=== PATIENT | female | born 1985 | race Caucasian/White ===

== ENCOUNTER 2025-02-07 19:48 | Inpatient (IN) | payer OTHER ==
--- NOTE | 2025-02-07 20:37 | ED ---
Fever HPI - General Chief Complaint: Upper Respiratory Infection Stated Complaint: Neck Pain,Sob,Fever Time Seen by Provider: 02/07/25 20:29 Source: patient, RN notes reviewed, old records reviewed Mode of arrival: ambulatory Limitations: no limitations - History of Present Illness Initial Comments: This is a 39-year-old female presenting extremely anxious crying said thinks that she is going to , patient states she recently had her mom her grandma and she is very nervous. Patient was in the hospital recently as in the past couple days and was told everything was okay to be discharged home but was placed on antibiotics he stated that did not help she is now having left leg pain left ankle pain severe shortness of breath coughing till she pukes and feels feverish with a racing heart and short of breath patient does have history of DVT and not taking blood thinner secondary to insurance issues MD Complaint: fever, malaise, weakness, other (Shortness of breath and anxiety) -: days(s) Temperature Source: subjective Context: sick contacts Associated Symptoms: chills, myalgias, cough, chest pain, nausea, vomiting Treatments Prior to Arrival: none - Related Data Home Medications Medication Instructions Recorded Confirmed Methadone HCl [Methadone Intensol] 105 mg PO DAILY 02/08/25 02/10/25 Previous Rx's Medication Instructions Recorded Vancomycin HCl in 5 % Dextrose 2 gm IV Q8HR #30 each 02/11/25 [Vancomycin 1.5 Gram/300 ml-D5w] Acetaminophen Tab [Tylenol] 650 mg PO Q6HR PRN tab 02/13/25 Ibuprofen [Motrin] 400 mg PO Q6HR PRN tab 02/13/25 Lidocaine 4% Patch 1 patch TOPICAL DAILY #30 patch 02/13/25 Magnesium Oxide [Mag-Ox] 400 mg PO DAILY #30 tab 02/13/25 Allergies Allergy/AdvReac Type Severity Reaction Status Date / Time No Known Allergies Allergy Verified 02/08/25 12:32 Review of Systems ROS Statement: Those systems with pertinent positive or pertinent negative responses have been documented in the HPI. ROS Other: All systems not noted in ROS Statement are negative. Past Medical History Past Medical History: Deep Vein Thrombosis (DVT) Additional Past Medical History / Comment(s): MTHFR, History of Any Multi-Drug Resistant Organisms: None Reported Past Surgical History: Cholecystectomy, Orthopedic Surgery, Tonsillectomy, Tubal Ligation Past Psychological History: Anxiety, Bipolar, Depression Past Alcohol Use History: None Reported Past Drug Use History: None Reported General Exam General appearance: alert, appears intoxicated, anxious, in distress Head exam: Present: atraumatic, normocephalic, normal inspection Eye exam: Present: normal appearance, PERRL, EOMI. Absent: scleral icterus, conjunctival injection, periorbital swelling ENT exam: Present: normal exam, mucous membranes moist Neck exam: Present: normal inspection. Absent: tenderness, meningismus, lymphadenopathy Respiratory exam: Present: respiratory distress, wheezes, accessory muscle use, decreased breath sounds, prolonged expiratory. Absent: rales, rhonchi, stridor Cardiovascular Exam: Present: normal rhythm, tachycardia, normal heart sounds. Absent: systolic murmur, diastolic murmur, rubs, gallop, clicks GI/Abdominal exam: Present: soft, normal bowel sounds. Absent: distended, tenderness, guarding, rebound, rigid Extremities exam: Present: normal inspection, full ROM, normal capillary refill. Absent: tenderness, pedal edema, joint swelling, calf tenderness Back exam: Present: normal inspection Neurological exam: Present: alert, oriented X3, CN II-XII intact Psychiatric exam: Present: normal affect, normal mood Skin exam: Present: warm, dry, intact, normal color. Absent: rash Course Vital Signs 02/07/25 02/07/25 02/07/25 19:52 21:18 21:26 Temperature 102.0 F H Pulse Rate 117 H 91 Respiratory 22 20 Rate Blood Pressure O2 Sat by Pulse 97 Oximetry 02/07/25 02/08/25 02/08/25 21:38 00:11 00:30 Temperature 99 F Pulse Rate 88 82 85 Respiratory 18 Rate Blood Pressure 120/54 O2 Sat by Pulse 94 L Oximetry 02/08/25 02/08/25 00:50 02:04 Temperature 97.8 F Pulse Rate 89 86 Respiratory 18 Rate Blood Pressure 109/59 O2 Sat by Pulse 94 L Oximetry - Reevaluation(s) Reevaluation #1: 02/07/25 21:31 Medical records reviewed Reevaluation #2: Patient has no improvement while here in the ER, fever is improved but she is more comfortable patient still short of breath with cough Reevaluation #3: Patient informed of results questions answered Reevaluation #4: Was pt. sent in by a medical professional or institution ([facility], [facility], urgent care, hospital, or correction...) When possible be specific @ -no Did you speak to anyone other than the patient for history (EMS, parent, family, police, friend...)? What history was obtained from this source @ -no Did you review nursing and triage notes (agree or disagree)? Why? @ -agree Are old charts reviewed (outside hosp., previous admission, EMS record, old EKG, old radiological studies, urgent care reports/EKG's, correction records)? Report findings @ -yes Differential Diagnosis (chest pain, altered mental status, abdominal pain women, abdominal pain men, vaginal bleeding, weakness, fever, dyspnea, syncope, h eadache, dizziness, GI bleed, back pain, seizure, CVA, palpatations, mental health, musculoskeletal)? @ -prior EKG interpreted by me (3pts min.). @ -yes X-rays interpreted by me (1pt min.). @ -no CT interpreted by me (1pt min.). @ -He has positive for significant pneumonia necrotizing pneumonia U/S interpreted by me (1pt. min.). @ -no What testing was considered but not performed or refused? (CT, X-rays, U/S, labs)? Why? @ -none What meds were considered but not given or refused? Why? @ -none Did you discuss the management of the patient with other professionals (professionals i.e. [facility], [facility], lab, RT, psych nurse, medical social worker, dry boss, teacher, parking officer, case checker)? Give summary @ -no Was smoking cessation discussed for >3mins.? @ -no Was critical care preformed (if so, how long)? @ -yes31 Were there social determinants of health that impacted care today? How? (Louise elessness, low income, unemployed, alcoholism, drug addiction, transportation, low edu. Level, literacy, decrease access to med. care, retirement, rehab)? @ -none Was there de-escalation of care discussed even if they declined (Discuss DNR or withdrawal of care, Hospice)? DNR status @ -no What co-morbidities impacted this encounter? (DM, HTN, Smoking, COPD, CAD, Cancer, CVA, ARF, Chemo, Hep., AIDS, mental health diagnosis, sleep apnea, morbid obesity)? @ -none Was patient admitted / discharged? Hospital course, mention meds given and route, prescriptions, significant lab abnormalities, going to OR and other pertinent info. @ - 39 female found to have significant and severe pneumonia here in the ER with persistent fever despite outpatient antibiotics, patient admitted for IV antibiotics secondary to severe cause of infection Admitted severe pneumonia failed outpatient treatment Undiagnosed new problem with uncertain prognosis? @ -no Drug Therapy requiring intensive monitoring for toxicity (Heparin, Nitro, Insulin, Cardizem)? @ -no Were any procedures done? @ -no Diagnosis/symptom? @ - Acute, or Chronic, or Acute on Chronic? @ -Acute Uncomplicated (without systemic symptoms) or Complicated (systemic symptoms)? @ -Complicated Side effects of treatment? @ -no Exacerbation, Progression, or Severe Exacerbation? @ -exacerbation Poses a threat to life or bodily function? How? (Chest pain, [place], [place], pneumonia, PE, COPD, DKA, ARF, appy, cholecystitis, CVA, Diverticulitis, Homicidal, Suicidal, threat to staff... and all critical care pts) @ -yes severe pneumonia Reevaluation #5: Differential Fever: Pneumonia, viral URI, endocarditis, myocarditis, pericarditis, otitis, sinusitis, peritonsillar Abscess, retropharyngeal Abscess, epiglottitis, peritonitis, appendicitis, Francoise cystitis, diverticulitis, hepatitis, colitis, UTI, PID, TOA, pyelonephritis, prostatitis, epididymitis, meningitis, encephalitis, pulmonary embolism, CVA, thyroid storm, pancreatitis, adrenal crisis, cavernous sinus thrombosis, this is not meant to be an all-inclusive list. Differential Dyspnea: Coronary syndrome, arrhythmia, tamponade, asthma, COPD, pulmonary embolism, pneumonia, pneumothorax, pulmonary effusion, anaphylaxis, diabetic ketoacidosis, flailed chest, pulmonary contusion, diaphragmatic rupture, anemia, neuromuscular, this is not meant to be an all-inclusive list. - Consultations Consultation #1: Spoke with [facility] who agrees to admit this patient Medical Decision Making - Medical Decision Making 39 female found to have significant and severe pneumonia here in the ER with persistent fever despite outpatient antibiotics, patient admitted for IV antibiotics secondary to severe cause of infection - Lab Data Result diagrams: 02/11/25 03:32 02/13/25 09:35 Lab Results 02/07/25 02/07/25 02/07/25 Range/Units 20:36 21:18 22:11 WBC 19.79 H (4.50-10.00) 10*3/uL RBC 3.76 L (4.10-5.20) 10*6/uL Hgb 10.6 L (12.0-15.0) g/dL Hct 30.5 L (37.2-46.3) % MCV 81.1 (80.0-97.0) fL MCH 28.2 (27.0-32.0) pg MCHC 34.8 (32.0-37.0) g/dL Plt Count 279 (140-440) 10*3/uL MPV 8.9 L (9.5-12.2) fL Immature Gran % (Auto) 0.9 % Neutrophils % 80.8 % Lymphocytes % 11.6 % Monocytes % 5.9 % Eosinophils % 0.3 % Basophils % 0.5 % Immature Gran # 0.18 H (0.00-0.04) 10*3/uL Neutrophils # 16.00 H (1.80-7.70) 10*3/uL Lymphocytes # 2.30 (0.90-5.00) 10*3/uL Monocytes # 1.16 H (0.20-1.00) 10*3/uL Eosinophils # 0.06 (0.04-0.35) 10*3/uL Basophils # 0.09 (0.00-0.10) 10*3/uL PT (10.0-12.5) sec INR (<1.2) APTT (22.0-30.0) sec Sodium (137-145) mmol/L Potassium (3.5-5.1) mmol/L Chloride (98-107) mmol/L Carbon Dioxide (22-30) mmol/L Anion Gap mmol/L BUN (7-17) mg/dL Creatinine (0.52-1.04) mg/dL Est GFR (CKD-EPI)AfAm (>60 ml/min/1.73 sqM) Est GFR (CKD-EPI)NonAf (>60 ml/min/1.73 sqM) Glucose (74-99) mg/dL Calcium (8.4-10.2) mg/dL Magnesium (1.6-2.3) mg/dL Total Bilirubin (0.2-1.3) mg/dL AST (14-36) U/L ALT (4-34) U/L Alkaline Phosphatase (38-126) U/L Troponin I (0.000-0.034) ng/mL NT-Pro-B Natriuret Pep pg/mL Total Protein (6.3-8.2) g/dL Albumin (3.5-5.0) g/dL Urine Color Colorless Urine Appearance Clear (Clear) Urine pH 6.5 (5.0-8.0) Ur Specific [place] 1.008 (1.001-1.035) Urine Protein Negative (Negative) Urine Glucose (UA) Negative (Negative) Urine Ketones Negative (Negative) Urine Blood Negative (Negative) Urine Nitrite Negative (Negative) Urine Bilirubin Negative (Negative) Urine Urobilinogen <2.0 (<2.0) mg/dL Ur Leukocyte Esterase Negative (Negative) Influenza Type A (PCR) Not Detected (Not Detectd) Influenza Type B (PCR) Not Detected (Not Detectd) RSV (PCR) Not Detected (Not Detectd) SARS-CoV-2 (PCR) Not Detected (Not Detectd) 02/07/25 02/07/25 02/07/25 Range/Units 22:11 22:11 22:11 WBC (4.50-10.00) 10*3/uL RBC (4.10-5.20) 10*6/uL Hgb (12.0-15.0) g/dL Hct (37.2-46.3) % MCV (80.0-97.0) fL MCH (27.0-32.0) pg MCHC (32.0-37.0) g/dL Plt Count (140-440) 10*3/uL MPV (9.5-12.2) fL Immature Gran % (Auto) % Neutrophils % % Lymphocytes % % Monocytes % % Eosinophils % % Basophils % % Immature Gran # (0.00-0.04) 10*3/uL Neutrophils # (1.80-7.70) 10*3/uL Lymphocytes # (0.90-5.00) 10*3/uL Monocytes # (0.20-1.00) 10*3/uL Eosinophils # (0.04-0.35) 10*3/uL Basophils # (0.00-0.10) 10*3/uL PT 11.3 (10.0-12.5) sec INR 1.0 (<1.2) APTT 27.0 (22.0-30.0) sec Sodium 129 L (137-145) mmol/L Potassium 2.8 L (3.5-5.1) mmol/L Chloride 92 L (98-107) mmol/L Carbon Dioxide 25 (22-30) mmol/L Anion Gap 12 mmol/L BUN 4 L (7-17) mg/dL Creatinine 0.64 (0.52-1.04) mg/dL Est GFR (CKD-EPI)AfAm >90 (>60 ml/min/1.73 sqM) Est GFR (CKD-EPI)NonAf >90 (>60 ml/min/1.73 sqM) Glucose 95 (74-99) mg/dL Calcium 7.8 L (8.4-10.2) mg/dL Magnesium 1.5 L (1.6-2.3) mg/dL Total Bilirubin 0.6 (0.2-1.3) mg/dL AST 39 H (14-36) U/L ALT 20 (4-34) U/L Alkaline Phosphatase 164 H (38-126) U/L Troponin I <0.012 (0.000-0.034) ng/mL NT-Pro-B Natriuret Pep 212 pg/mL Total Protein 6.7 (6.3-8.2) g/dL Albumin 2.8 L (3.5-5.0) g/dL Urine Color Urine Appearance (Clear) Urine pH (5.0-8.0) Ur Specific [place] (1.001-1.035) Urine Protein (Negative) Urine Glucose (UA) (Negative) Urine Ketones (Negative) Urine Blood (Negative) Urine Nitrite (Negative) Urine Bilirubin (Negative) Urine Urobilinogen (<2.0) mg/dL Ur Leukocyte Esterase (Negative) Influenza Type A (PCR) (Not Detectd) Influenza Type B (PCR) (Not Detectd) RSV (PCR) (Not Detectd) SARS-CoV-2 (PCR) (Not Detectd) - EKG Data -: EKG Interpreted by Me (EKG is sinus 93 [place] 128 QRS 94 QTc 423) - Radiology Data Radiology results: report reviewed (CTA chest positive for significant pneumonia suspect necrotizing pneumonia), image reviewed Critical Care Time Critical Care Time: Yes Total Critical Care Time: 31 Disposition Clinical Impression: Swelling of left lower extremity, Sepsis, Pneumonia, Fever, Acute upper respiratory infection Narrative: Noncompliance with Anticoagulation Disposition: ADMITTED IP TO THIS HOSP Condition: Serious
[2025-02-07] MEDS: IPRATROPIUM-ALBUTEROL 3 ML NEB INHALATION STA (21:24)
[2025-02-07] MEDS: ACETAMINOPHEN TAB 500 MG TAB PO STA (22:17)
[2025-02-07] MEDS: HYDROmorphone 1 MG/ML 1 ML SYRINGE IVP STA ×2 (22:21→23:41)
[2025-02-07 22:23] LABS: Basophils # (A) 0.09 10*3/uL (0.00-0.10); Basophils % (A) 0.5 %; Eosinophils # (A) 0.06 10*3/uL (0.04-0.35); Eosinophils % (A) 0.3 %; HCT 30.5 % (37.2-46.3); HGB 10.6 g/dL (12.0-15.0); Lymphocytes % (A) 11.6 %; MCH 28.2 pg (27.0-32.0); MCHC 34.8 g/dL (32.0-37.0); MCV 81.1 fL (80.0-97.0); Mean Platelet Volume 8.9 fL (9.5-12.2); Monocytes # (A) 1.16 10*3/uL (0.20-1.00); Monocytes % (A) 5.9 %; Neutrophils % (A) 80.8 %; Platelet Count 279 10*3/uL (140-440); RBC 3.76 10*6/uL (4.10-5.20); RDW 12.9 % (11.5-14.5); WBC 19.79 10*3/uL (4.50-10.00)
[2025-02-07] MEDS: SODIUM CHLORIDE 0.9% 1,000 ML IV ONE (22:25)
[2025-02-07] MEDS: SODIUM CHLORIDE 0.9% 500 ML 500 ML IV ONE (22:25)
[2025-02-07] MEDS: ONDANSETRON 4 MG/2 ML VIAL IVP STA (22:28)
[2025-02-07] MEDS: SODIUM CHLORIDE 0.9% 1,000 ML IV SCH ×2 (22:28→22:58)
[2025-02-07] MEDS: ACETAMINOPHEN IV (For NPO) 1,000 MG in EMPTY BAG 1 BAG IVPB STA (22:29)
[2025-02-07] MEDS ORDERED: NALOXONE 0.4 MG/ML 1 ML VIAL IV PRN (22:29)
[2025-02-07] MEDS ORDERED: MORPHINE SULFATE 4 MG/ML SYRINGE IV PRN (22:29)
[2025-02-07 22:30] LABS: Influenza A Not Detected (Not Detectd); Influenza B Not Detected (Not Detectd); RSV Not Detected (Not Detectd)
[2025-02-07 22:34] LABS: ALT 20 U/L (4-34); AST 39 U/L (14-36); African American GFR (CKD) >90 (>60 ml/min/1.73 sqM); Albumin 2.8 g/dL (3.5-5.0); Alkaline Phosphatase 164 U/L (38-126); Anion Gap 12 mmol/L; Blood Urea Nitrogen 4 mg/dL (7-17); Calcium 7.8 mg/dL (8.4-10.2); Carbon Dioxide 25 mmol/L (22-30); Chloride 92 mmol/L (98-107); Glucose 95 mg/dL (74-99); Magnesium 1.5 mg/dL (1.6-2.3); Non-African American GFR(CKD) >90 (>60 ml/min/1.73 sqM); Potassium 2.8 mmol/L (3.5-5.1); Sodium 129 mmol/L (137-145); Total Bilirubin 0.6 mg/dL (0.2-1.3); Total Protein 6.7 g/dL (6.3-8.2)
[2025-02-07 22:35] LABS: Prothrombin Time 11.3 sec (10.0-12.5)
[2025-02-07 22:43] LABS: NT-Pro-B-Type Natriuretic Pept 212 pg/mL
[2025-02-07] MEDS: IBUPROFEN 800 MG TAB PO STA (23:00)
[2025-02-07] MEDS: NICOTINE 21MG/24HR PATCH TRANSDERM SCH (23:43)
[2025-02-07] MEDS: POTASSIUM BICARBONATE/CIT AC 20 MEQ TABLET.EFF PO STA (23:43)
[2025-02-07] MEDS: POTASSIUM CHLORIDE ER 20 MEQ TAB.ER PO STA (23:44)
[2025-02-07] MEDS: MAGNESIUM OXIDE 400 MG TAB PO STA (23:44)
[2025-02-07] MEDS: IBUPROFEN IV 800 MG in SODIUM CHLORIDE 0.9% 250 ML IV ONE (23:47)
[2025-02-07] MEDS: KETOROLAC 15 MG/ML 1 ML VIAL IVP STA (23:51)
--- NOTE | 2025-02-07 23:52 | CT ---
EXAM: CT Angiography Chest With Intravenous Contrast CLINICAL HISTORY: ITS.REASON CT Reason: sob TECHNIQUE: Axial computed tomographic angiography images of the chest with intravenous contrast. This CT exam was performed using one or more of the following dose reduction techniques: automated exposure control, adjustment of the mA and/or kV according to patient size, and/or use of iterative reconstruction technique. MIP reconstructed images were created and reviewed. COMPARISON: No relevant prior studies available. FINDINGS: Pulmonary arteries: No large or central pulmonary embolism. Evaluation is limited due to suboptimal contrast bolus timing. Consider repeat exam, if clinically indicated. Aorta: No acute findings. No thoracic aortic aneurysm. Lungs: Necrotizing LEFT lower lobe pneumonia with multiple cystic airspaces developing. No mass. Pleural space: Unremarkable. No pneumothorax. No pleural effusion. Heart: Unremarkable. No cardiomegaly. No significant pericardial effusion. No evidence of RV dysfunction. Bones/joints: No acute fracture. No dislocation. Soft tissues: Unremarkable. Lymph nodes: Unremarkable. No enlarged lymph nodes. Liver: Hepatic steatosis. Gallbladder and bile ducts: Cholecystectomy. IMPRESSION: 1. Necrotizing LEFT lower lobe pneumonia with multiple cystic airspaces developing. 2. No large or central pulmonary embolism. Evaluation is limited due to suboptimal contrast bolus timing. Consider repeat exam, if clinically indicated. 3. Hepatic steatosis. Cholecystectomy.
[2025-02-07] MEDS: HEPARIN SODIUM 1,000 UN/ML (10ML VL) IV ONE (23:54)
[2025-02-07] MEDS: HEPARIN SOD,PORK IN 0.45% NACL 25,000 UNIT in 0.45% NACL 1 250ML.BAG IV SCH (23:55)
[2025-02-08] MEDS: MAGNESIUM OXIDE 400 MG TAB PO SCH
--- NOTE | 2025-02-08 00:13 | US ---
EXAM: US Duplex Left Lower Extremity Veins CLINICAL HISTORY: dvt. Pain. TECHNIQUE: Real-time duplex ultrasound scan of the left lower extremity veins integrating B-mode two-dimensional vascular structure, Doppler spectral analysis, color flow Doppler imaging and compression. COMPARISON: No relevant prior studies available. FINDINGS: Deep veins: Unremarkable. No DVT in the visualized common femoral, femoral, proximal deep femoral or popliteal veins. The veins demonstrate normal color flow, are normally compressible, with normal phasic flow and/or augmentation response. Soft tissues: No acute abnormality. No popliteal cyst. IMPRESSION: No evidence of deep venous thrombosis.
[2025-02-08] MEDS: MAGNESIUM SULFATE-D5W PMX 1 GM in DEXTROSE/WATER 1 100ML.BAG IVPB ONE (00:15)
[2025-02-08] MEDS: IPRATROPIUM-ALBUTEROL 3 ML NEB INHALATION STA (00:28)
[2025-02-08] MEDS: AZITHROMYCIN 500 MG in SODIUM CHLORIDE 0.9% 250 ML IVPB STA (01:50)
[2025-02-08] MEDS: HYDROmorphone 2 MG/ML 1 ML SYRINGE IVP PRN (03:12)
[2025-02-08] MEDS: ALBUTEROL NEBULIZED 2.5 MG/3 ML INHALATION PRN (03:32)
[2025-02-08] MEDS: cefTRIAXone 2 GM in DEXTROSE 5% IN WATER 50 ML IVPB SCH (03:37)
[2025-02-08] MEDS ORDERED: VANCOMYCIN IV PER PHARMACY 1 EACH MISC MISCELLANE PRN (06:40)
[2025-02-08 06:46] LABS: Basophils # (A) 0.05 10*3/uL (0.00-0.10); Basophils % (A) 0.3 %; Eosinophils % (A) 0.7 %; HCT 27.3 % (37.2-46.3); HGB 9.4 g/dL (12.0-15.0); Lymphocytes % (A) 13.9 %; MCH 28.1 pg (27.0-32.0); MCHC 34.4 g/dL (32.0-37.0); MCV 81.5 fL (80.0-97.0); Mean Platelet Volume 9.5 fL (9.5-12.2); Monocytes # (A) 1.32 10*3/uL (0.20-1.00); Monocytes % (A) 9.1 %; Neutrophils # (A) 10.72 10*3/uL (1.80-7.70); Neutrophils % (A) 74.3 %; Platelet Count 244 10*3/uL (140-440); RBC 3.35 10*6/uL (4.10-5.20); RDW 13.2 % (11.5-14.5); WBC 14.44 10*3/uL (4.50-10.00)
[2025-02-08 06:50] LABS: ALT 16 U/L (4-34); AST 35 U/L (14-36); African American GFR (CKD) >90 (>60 ml/min/1.73 sqM); Albumin 2.3 g/dL (3.5-5.0); Alkaline Phosphatase 120 U/L (38-126); Anion Gap 4 mmol/L; Blood Urea Nitrogen 4 mg/dL (7-17); Calcium 7.3 mg/dL (8.4-10.2); Carbon Dioxide 27 mmol/L (22-30); Chloride 104 mmol/L (98-107); Glucose 101 mg/dL (74-99); Non-African American GFR(CKD) >90 (>60 ml/min/1.73 sqM); Phosphorus 3.8 mg/dL (2.5-4.5); Sodium 135 mmol/L (137-145); Total Bilirubin 0.6 mg/dL (0.2-1.3); Total Protein 5.8 g/dL (6.3-8.2)
[2025-02-08] MEDS: guaiFENesin SYRUP 100MG/5ML 200 MG/10 ML CUP PO PRN (07:45)
[2025-02-08 08:14] LABS: Appearance,Urine Clear (Clear); Bilirubin,Urine Negative (Negative); Blood,Urine Negative (Negative); Color,Urine Colorless; Glucose,Urine (UA) Negative (Negative); Ketones,Urine Negative (Negative); Leukocyte Esterase,Urine Negative (Negative); Nitrite,Urine Negative (Negative); PH, Urine 6.5 (5.0-8.0); Protein,Urine Negative (Negative); Specific Gravity,Urine 1.008 (1.001-1.035); Urobilinogen,Urine <2.0 mg/dL (<2.0)
[2025-02-08] MEDS ORDERED: AZITHROMYCIN 500 MG in SODIUM CHLORIDE 0.9% 250 ML IVPB SCH (09:00)
[2025-02-08] MEDS: VANCOMYCIN 1,750 MG in SODIUM CHLORIDE 0.9% 500 ML 500 ML IVPB ONE (09:32)
[2025-02-08] MEDS: ACETAMINOPHEN TAB 325 MG TAB PO PRN (09:53)
[2025-02-08] MEDS: HEPARIN SODIUM 1,000 UN/ML (10ML VL) IV PRN (10:30)
[2025-02-08] MEDS: POTASSIUM CHLORIDE ER 20 MEQ TAB.ER PO STA (13:42)
--- NOTE | 2025-02-08 14:35 | P.HPIM ---
History of Present Illness H&P Date: 02/08/25 History of present illness; patient 39-year-old lady with past medical history significant for DVT who presents the ER because of shortness of breath and fever. Patient apparently was seen at [facility] about 2 weeks ago with similar complaints and was discharged on Levaquin. Patient is very anxious apparently has lost her mom recently. Patient stated that she has been feeling feverish at home. Patient has been complaining of cough, complaining of shortness of breath at rest as well exertion. Patient also complaining of nausea and vomiting. Patient is not able to keep anything down. Complaining of pain in her lower extremities as well. Because of the symptoms, patient came to the ER Initial lab work done in the ER showed WBC 19.7, hemoten 0.6, platelet count 279, sodium 110, potassium 2.8, BUN 12 4, creatinine 0.64, magnesium 1.5, AST 39, ALT 20 UA done was negative for infection Influenza A not detected Influenza B not detected RSV not detected COVID-19 not detected EKG done in the ER showed heart rate of 93, no ST segment elevation or depression seen, no T-wave inversions seen. CT chest PE protocol done showed necrotizing left lower lobe pneumonia with mul tiple cystic airspaces Duplex ultrasound of lower extremity showed no evidence of DVT Patient admitted to internal medicine service REVIEW OF SYSTEMS: CONSTITUTIONAL: No fever, no malaise, no fatigue. HEENT: No recent visual problems or hearing problems. Denied any sore throat. CARDIOVASCULAR: As mentioned above. PULMONARY: As mentioned above GASTROINTESTINAL: No diarrhea, no nausea, no vomiting, no abdominal pain. NEUROLOGICAL: No headaches, no weakness, no numbness. HEMATOLOGICAL: Denies any bleeding or petechiae. GENITOURINARY: Denies any burning micturition, frequency, or urgency. MUSCULOSKELETAL/RHEUMATOLOGICAL: Denies any joint pain, swelling, or any muscle pain. ENDOCRINE: Denies any polyuria or polydipsia. The rest of the 14-point review of systems is negative. PHYSICAL EXAMINATION: GENERAL: The patient is alert and oriented x3, not in any acute distress. Well developed, well nourished. HEENT: Pupils are round and equally reacting to light. EOMI. No scleral icterus. No conjunctival pallor. Normocephalic, atraumatic. No pharyngeal erythema. No thyromegaly. CARDIOVASCULAR: S1 and S2 present. No murmurs, rubs, or gallops. PULMONARY: Chest is clear to auscultation, no wheezing or crackles. ABDOMEN: Soft, nontender, nondistended, normoactive bowel sounds. No palpable organomegaly. MUSCULOSKELETAL: No joint swelling or deformity. EXTREMITIES: No cyanosis, clubbing, or pedal edema. NEUROLOGICAL: Gross neurological examination did not reveal any focal deficits. SKIN: No rashes. Assessment and plan Bacterial pneumonia Sepsis Leukocytosis Hyponatremia Hypokalemia Hypomagnesemia Monitor vital signs Monitor CBC Monitor CMP Continue telemetry monitoring Ordered blood cultures ordered sputum cultures Ordered IV cefepime, azithromycin, Vanco Ordered MRSA screen Ordered breathing treatment Patient was started on heparin in the ER, at this time do not see any need for keeping patient on anticoagulation Consult pulmonology Consult ID Labs and medication were reviewed.. Continue same treatment. Continue with symptomatic treatment. Resume home medication. Monitor labs and vitals. DVT and GI prophylaxis. Further recommendations as per clinical course of the patient Dictation was produced using [employer] dictation software. please excuse any g rammatical, word or spelling errors. Past Medical History Past Medical History: Deep Vein Thrombosis (DVT), Pulmonary Embolus (PE) Additional Past Medical History / Comment(s): MTHFR, History of Any Multi-Drug Resistant Organisms: None Reported Past Surgical History: Cholecystectomy, Orthopedic Surgery, Tonsillectomy, Tubal Ligation Additional Past Surgical History / Comment(s): 3 knee surgeries on R knee. Past Anesthesia/Blood Transfusion Reactions: No Reported Reaction Past Psychological History: Anxiety, Bipolar, Depression Smoking Status: Current every day smoker Past Alcohol Use History: None Reported Past Drug Use History: None Reported Medications and Allergies Home Medications Medication Instructions Recorded Confirmed Type Methadone HCl [Methadone Intensol] 105 mg PO DIRECTED 02/08/25 02/08/25 History Allergies Allergy/AdvReac Type Severity Reaction Status Date / Time No Known Allergies Allergy Verified 02/08/25 12:32 Physical Exam Vitals: Vital Signs Temp Pulse Pulse Resp BP BP BP 02/08/25 12:21 82 02/08/25 12:09 82 02/08/25 09:08 72 02/08/25 08:56 70 02/08/25 07:10 97.5 F L 73 18 96/58 02/08/25 03:41 84 02/08/25 03:34 77 02/08/25 02:34 97.9 F 86 19 112/62 02/08/25 02:04 97.8 F 86 18 109/59 02/08/25 00:50 89 02/08/25 00:30 85 02/08/25 00:11 99 F 82 18 120/54 02/07/25 21:38 88 02/07/25 21:26 91 02/07/25 21:18 20 02/07/25 19:52 102.0 F H 117 H 22 Pulse Ox 02/08/25 12:21 02/08/25 12:09 02/08/25 09:08 02/08/25 08:56 02/08/25 07:10 94 L 02/08/25 03:41 02/08/25 03:34 02/08/25 02:34 98 02/08/25 02:04 94 L 02/08/25 00:50 02/08/25 00:30 02/08/25 00:11 94 L 02/07/25 21:38 02/07/25 21:26 02/07/25 21:18 02/07/25 19:52 97 Intake and Output 02/07/25 02/08/25 02/08/25 22:59 06:59 14:59 Intake Total 100.5 Balance 100.5 Intake: Intake, IV Titration 100.5 Amount Heparin Sod,Pork in 0.45% 100.5 NaCl 25,000 unit In 0.45 % NaCl 1 250ml.bag @ 9. 186 UNITS/KG/HR 10 mls/hr IV .Q24H [facility] Rx#: [id number] Other: Voiding Method Toilet Diaper # Voids 1 Weight 108.862 kg 108.862 kg Results CBC & Chem 7: 02/08/25 06:05 02/08/25 06:05 Labs: Abnormal Lab Results - Last 24 Hours (Table) 02/07/25 02/07/25 02/08/25 Range/Units 22:11 22:11 06:05 WBC 19.79 H 14.44 H (4.50-10.00) 10*3/uL RBC 3.76 L 3.35 L (4.10-5.20) 10*6/uL Hgb 10.6 L 9.4 L (12.0-15.0) g/dL Hct 30.5 L 27.3 L (37.2-46.3) % MPV 8.9 L (9.5-12.2) fL Immature Gran # 0.18 H 0.25 H (0.00-0.04) 10*3/uL Neutrophils # 16.00 H 10.72 H (1.80-7.70) 10*3/uL Monocytes # 1.16 H 1.32 H (0.20-1.00) 10*3/uL APTT (22.0-30.0) sec Sodium 129 L (137-145) mmol/L Potassium 2.8 L (3.5-5.1) mmol/L Chloride 92 L (98-107) mmol/L BUN 4 L (7-17) mg/dL Creatinine (0.52-1.04) mg/dL Glucose (74-99) mg/dL Calcium 7.8 L (8.4-10.2) mg/dL Magnesium 1.5 L (1.6-2.3) mg/dL AST 39 H (14-36) U/L Alkaline Phosphatase 164 H (38-126) U/L Total Protein (6.3-8.2) g/dL Albumin 2.8 L (3.5-5.0) g/dL 02/08/25 02/08/25 Range/Units 06:05 06:05 WBC (4.50-10.00) 10*3/uL RBC (4.10-5.20) 10*6/uL Hgb (12.0-15.0) g/dL Hct (37.2-46.3) % MPV (9.5-12.2) fL Immature Gran # (0.00-0.04) 10*3/uL Neutrophils # (1.80-7.70) 10*3/uL Monocytes # (0.20-1.00) 10*3/uL APTT 31.3 H (22.0-30.0) sec Sodium 135 L (137-145) mmol/L Potassium 3.0 L (3.5-5.1) mmol/L Chloride (98-107) mmol/L BUN 4 L (7-17) mg/dL Creatinine 0.50 L (0.52-1.04) mg/dL Glucose 101 H (74-99) mg/dL Calcium 7.3 L (8.4-10.2) mg/dL Magnesium (1.6-2.3) mg/dL AST (14-36) U/L Alkaline Phosphatase (38-126) U/L Total Protein 5.8 L (6.3-8.2) g/dL Albumin 2.3 L (3.5-5.0) g/dL Thrombosis Risk Factor Assmnt - Choose All That Apply Any of the Below Risk Factors Present?: No Other Risk Factors: Yes Each Risk Factor Represents 3 Points: History of DVT/PE Other congenital or acquired thrombophilia - If yes, enter type in comment: No Thrombosis Risk Factor Assessment Total Risk Factor Score: 3 Thrombosis Risk Factor Assessment Level: Moderate Risk
--- NOTE | 2025-02-08 15:32 | P.CNPUL ---
History of Present Illness Consult date: 02/08/25 Requesting physician: Mateo Evans Reason for consult: dyspnea, pneumonia, abnormal CXR/CT Chief complaint: Shortness of breath, cough, fever History of present illness: This is a 39-year-old female with a history of previous IV drug abuse currently on methadone, chronic tobacco dependence, vapes, MTHFR clotting disorder with previous PE/DVT who had not been on blood thinners for quite some time due to cost and an ability to regulate warfarin, obesity. Approximately 10 days ago she was seen at [facility] in the emergency department and was told she may have pneumonia and was given Levaquin which she took for 7 days. She had no significant improvement and presented here to the emergency room last evening with worsening shortness of breath, coughing up blood and high fevers. She was considerably weak and barely able to get out of bed. CT angiogram ruled out pulmonary embolism. There is necrotizing left lower lobe pneumonia with multiple cystic airspace developing. Venous Doppler of the left lower extremity ruled out DVT. White count 14.4. Hemoglobin 9.4. Platelets 244. Sodium 135. Potassium 3.0. Bicarb 27. BUN 4. Creatinine 0.50. Glucose 101. Urinalysis clean. Viral screen negative for influenza A/B, RSV or COVID. She is seen today in consultation on the regular medical floor. She is currently sitting up in bed. Awake and alert in no acute distress. Maintaining O2 saturations in the 90s on room air oxygen. She had a Tmax on arrival of 102.0. She is currently afebrile. No tachycardia. No tachypnea. Blood pressure stable. Review of Systems REVIEW OF SYSTEMS: CONSTITUTIONAL: Positive for febrile illness denies any recent significant weight loss or weight gain. EYES: Denies change in vision. EARS, NOSE, MOUTH, THROAT: Denies headaches, denies sore throat. CARDIOVASCULAR: Denies chest pain, palpitations or syncopal episodes. RESPIRATORY: Positive for shortness of breath, cough, congestion and hemoptysis. GASTROINTESTINAL: Denies change in appetite, denies abdominal pain GENITOURINARY: Denies hematuria, denies infections. MUSKULOSKELETAL: Denies pain, denies swelling. INTEGUMENTARY: Denies rash, denies eczema. NEUROLOGICAL: Denies recent memory loss, no recent seizure activity. PSYCHIATRIC: Denies anxiety, denies depression. HEMATOLOGIC/LYMPHATIC: Denies anemia, denies enlarged lymph nodes. Past Medical History Past Medical History: Deep Vein Thrombosis (DVT), Pulmonary Embolus (PE) Additional Past Medical History / Comment(s): MTHFR, History of Any Multi-Drug Resistant Organisms: None Reported Past Surgical History: Cholecystectomy, Orthopedic Surgery, Tonsillectomy, Tubal Ligation Additional Past Surgical History / Comment(s): 3 knee surgeries on R knee. Past Anesthesia/Blood Transfusion Reactions: No Reported Reaction Past Psychological History: Anxiety, Bipolar, Depression Smoking Status: Current every day smoker Past Alcohol Use History: None Reported Past Drug Use History: None Reported Medications and Allergies Home Medications Medication Instructions Recorded Confirmed Type Methadone HCl [Methadone Intensol] 105 mg PO DIRECTED 02/08/25 02/08/25 History Allergies Allergy/AdvReac Type Severity Reaction Status Date / Time No Known Allergies Allergy Verified 02/08/25 12:32 Physical Exam Vitals: Vital Signs Temp Pulse Pulse Resp BP BP BP 02/08/25 14:00 98.9 F 85 18 131/71 02/08/25 12:21 82 02/08/25 12:09 82 02/08/25 09:08 72 02/08/25 08:56 70 02/08/25 07:10 97.5 F L 73 18 96/58 02/08/25 03:41 84 02/08/25 03:34 77 02/08/25 02:34 97.9 F 86 19 112/62 02/08/25 02:04 97.8 F 86 18 109/59 02/08/25 00:50 89 02/08/25 00:30 85 02/08/25 00:11 99 F 82 18 120/54 02/07/25 21:38 88 02/07/25 21:26 91 02/07/25 21:18 20 02/07/25 19:52 102.0 F H 117 H 22 Pulse Ox 02/08/25 14:00 97 02/08/25 12:21 02/08/25 12:09 02/08/25 09:08 02/08/25 08:56 02/08/25 07:10 94 L 02/08/25 03:41 02/08/25 03:34 02/08/25 02:34 98 02/08/25 02:04 94 L 02/08/25 00:50 02/08/25 00:30 02/08/25 00:11 94 L 02/07/25 21:38 02/07/25 21:26 02/07/25 21:18 02/07/25 19:52 97 Intake and Output 02/08/25 02/08/25 02/08/25 06:59 14:59 22:59 Intake Total 100.5 Balance 100.5 Intake: Intake, IV Titration 100.5 Amount Heparin Sod,Pork in 0.45% 100.5 NaCl 25,000 unit In 0.45 % NaCl 1 250ml.bag @ 9. 186 UNITS/KG/HR 10 mls/hr IV .Q24H [facility] Rx#: [id number] Other: Voiding Method Toilet Diaper # Voids 1 Weight 108.862 kg GENERAL EXAM: Alert, 39-year-old obese female, on room air oxygen, fairly comfortable in no apparent distress. HEAD: Normocephalic. EYES: Normal reaction of pupils, equal size. NOSE: Clear with pink turbinates. THROAT: No erythema or exudates. NECK: No masses, no JVD. CHEST: No chest wall deformity. LUNGS: Equal air entry with coarse scattered rhonchi over the left lung. CVS: S1 and S2 normal with no audible murmur, regular rhythm. ABDOMEN: No hepatosplenomegaly, normal bowel sounds, no guarding or rigidity. SPINE: No scoliosis or deformity SKIN: No rashes. Multiple tattoos CENTRAL NERVOUS SYSTEM: No focal deficits, tone is normal in all 4 extremities. EXTREMITIES: There is no peripheral edema. No clubbing, no cyanosis. Peripheral pulses are intact. Results - Laboratory Findings CBC and BMP: 02/08/25 06:05 02/08/25 06:05 PT/INR, D-dimer PT 11.3 sec (10.0-12.5) 02/07/25 22:11 INR 1.0 (<1.2) 02/07/25 22:11 Abnormal lab findings: Abnormal Labs 02/07/25 02/07/25 02/08/25 22:11 22:11 06:05 WBC 19.79 H 14.44 H RBC 3.76 L 3.35 L Hgb 10.6 L 9.4 L Hct 30.5 L 27.3 L MPV 8.9 L Immature Gran # 0.18 H 0.25 H Neutrophils # 16.00 H 10.72 H Monocytes # 1.16 H 1.32 H APTT Sodium 129 L Potassium 2.8 L Chloride 92 L BUN 4 L Creatinine Glucose Calcium 7.8 L Magnesium 1.5 L AST 39 H Alkaline Phosphatase 164 H Total Protein Albumin 2.8 L 02/08/25 02/08/25 06:05 06:05 WBC RBC Hgb Hct MPV Immature Gran # Neutrophils # Monocytes # APTT 31.3 H Sodium 135 L Potassium 3.0 L Chloride BUN 4 L Creatinine 0.50 L Glucose 101 H Calcium 7.3 L Magnesium AST Alkaline Phosphatase Total Protein 5.8 L Albumin 2.3 L - Diagnostic Findings Chest x-ray: image reviewed CT scan - chest: image reviewed U/S of Legs: image reviewed Assessment and Plan Assessment: Acute community-acquired necrotizing left lower lobe pneumonia with multiple cystic airspaces developing Febrile illness secondary to above Cytosis secondary to above Chronic and ongoing tobacco dependence including vaping History of IV drug abuse, currently on methadone History of MTHFR gene mutation History of previous PE/DVT, not on anticoagulants for years due to cost History of bipolar disorder Anxiety/depression Obesity with a BMI of 35.4 kg/m Plan: The patient was seen and evaluated All imaging, labs and medications reviewed Currently stable on room air oxygen Initiated on vancomycin, cefepime Continued on azithromycin ID consulted Continue albuterol as needed Sputum sample obtained Continue saline at 130 mL/h May require bronchoscopy We will continue to follow make further recommendations based on her clinical status I have personally seen and examined the patient, performed the documentation and the assessment and plan as written. Number of minutes spent on the visit: 20 Dictation was produced using [employer] dictation software. Please excuse any grammatical, word or spelling errors. Time with Patient: Greater than 30
[2025-02-08] MEDS: VANCOMYCIN 1,750 MG in SODIUM CHLORIDE 0.9% 500 ML 500 ML IVPB SCH (18:02)
[2025-02-08] MEDS: CYCLOBENZAPRINE 5 MG TAB PO PRN (20:31)
--- NOTE | 2025-02-08 23:10 | P.CONS ---
History of Present Illness - Reason for Consult Consult date: 02/08/25 Fever Requesting physician: Tevin Gonzalez - Chief Complaint Shortness of breath and cough x days - History of Present Illness Patient is a 39-year-old female with a past medical history significant for DVT PE anxiety bipolar depression currently everyday smoker presenting to the hospital for evaluation of increasing shortness of breath and cough that have been has been getting worse over the last few days patient did have a recent admission to the [facility] with similar symptoms for the patient has been discharged on oral Levaquin therapy patient complaining of increasing shortness of breath on minimal exertion even at rest the patient also have a cough moderate intensity bring up some purulent sputum no hemoptysis did have some pleuritic chest pain on presentation to the hospital patient did have a fever of 102 F patient was tachycardic but not hypotensive or hypoxic no need for supplemental oxygen she did have white count of 19.79 creatinine 0.64 potassium was 2.8 repeat is 3.0 liver enzymes are normal urine has been negative influenza RSV COVID testing has been negative patient did have a CT angiogram of the chest no PE there was necrotizing left lower lobe pneumonia with multiple cystic airspace opacities patient has been treated with Rocephin and Zithromax infectious disease was consulted for further management of antibiotic therapy Review of Systems Positive point and negatives has been mentioned in the HPI, complete review of systems was performed and all other systems are negative Past Medical History Past Medical History: Deep Vein Thrombosis (DVT), Pulmonary Embolus (PE) Additional Past Medical History / Comment(s): MTHFR, History of Any Multi-Drug Resistant Organisms: None Reported Past Surgical History: Cholecystectomy, Orthopedic Surgery, Tonsillectomy, Tubal Ligation Additional Past Surgical History / Comment(s): 3 knee surgeries on R knee. Past Anesthesia/Blood Transfusion Reactions: No Reported Reaction Past Psychological History: Anxiety, Bipolar, Depression Smoking Status: Current every day smoker Past Alcohol Use History: None Reported Past Drug Use History: None Reported Medications and Allergies Home Medications Medication Instructions Recorded Confirmed Type Methadone HCl [Methadone Intensol] 105 mg PO DIRECTED 02/08/25 02/08/25 History Allergies Allergy/AdvReac Type Severity Reaction Status Date / Time No Known Allergies Allergy Verified 02/08/25 12:32 Physical Exam Vitals: Vital Signs Temp Pulse Pulse Resp BP BP Pulse Ox 02/08/25 03:41 84 02/08/25 03:34 77 02/08/25 02:34 97.9 F 86 19 112/62 98 02/08/25 02:04 97.8 F 86 18 109/59 94 L 02/08/25 00:50 89 02/08/25 00:30 85 02/08/25 00:11 99 F 82 18 120/54 94 L 02/07/25 21:38 88 02/07/25 21:26 91 02/07/25 21:18 20 02/07/25 19:52 102.0 F H 117 H 22 97 Intake and Output 02/07/25 02/07/25 02/08/25 14:59 22:59 06:59 Other: Voiding Method Toilet Diaper # Voids 1 Weight 108.862 kg 108.862 kg GENERAL DESCRIPTION: Delayed female lying in bed, no distress. No tachypnea or accessory muscle of respiration use. HEENT: Shows Pallor , no scleral icterus. Oral mucous membrane is dry. NECK: Trachea central, no thyromegaly. LUNGS: Unlabored breathing. Decreased breath sound at the base HEART: S1, S2, regular rate and rhythm. No loud murmur ABDOMEN: Soft, no tenderness , guarding or rigidity, no organomegaly EXTREMITIES: No edema of feet. SKIN: No rash, no masses palpable. NEUROLOGICAL: The patient is awake, alert, oriented x3, mood and affect normal. Results CBC & Chem 7: 02/08/25 06:05 02/08/25 06:05 Labs: Abnormal Lab Results - Last 24 Hours (Table) 02/07/25 02/07/25 Range/Units 22:11 22:11 WBC 19.79 H (4.50-10.00) 10*3/uL RBC 3.76 L (4.10-5.20) 10*6/uL Hgb 10.6 L (12.0-15.0) g/dL Hct 30.5 L (37.2-46.3) % MPV 8.9 L (9.5-12.2) fL Immature Gran # 0.18 H (0.00-0.04) 10*3/uL Neutrophils # 16.00 H (1.80-7.70) 10*3/uL Monocytes # 1.16 H (0.20-1.00) 10*3/uL Sodium 129 L (137-145) mmol/L Potassium 2.8 L (3.5-5.1) mmol/L Chloride 92 L (98-107) mmol/L BUN 4 L (7-17) mg/dL Calcium 7.8 L (8.4-10.2) mg/dL Magnesium 1.5 L (1.6-2.3) mg/dL AST 39 H (14-36) U/L Alkaline Phosphatase 164 H (38-126) U/L Albumin 2.8 L (3.5-5.0) g/dL Assessment and Plan (1) Sepsis Current Visit: Yes Status: Acute Code(s): A41.9 - SEPSIS, UNSPECIFIED ORGANISM SNOMED Code(s): 17108200 (2) Pneumonia Current Visit: Yes Status: Acute Code(s): J18.9 - PNEUMONIA, UNSPECIFIED ORGANISM SNOMED Code(s): 328389552 Plan: 1patient presented to hospital with sepsis in this patient who did have fever tachycardia elevated white count meeting criteria for SIRS/sepsis source is pneumonia in this patient recently treated with oral Levaquin failing outpatient will require therapy concerning for possible necrotizing pneumonia related to resistant gram-positive/gram-negative pathogen. 2try to obtain a sputum for Gram stain and culture. 3discontinue Rocephin and Zithromax. 4we will start the patient on vancomycin pharmacy to dose and cefepime while waiting for the workup to be completed We will follow on clinical condition and cultures to further adjust medication i f needed Thank you for this consultation we will follow the patient along with you Dictation was produced using [employer] dictation software. please excuse any grammatical, word or spelling errors. Time with Patient: Greater than 30
[2025-02-09] MEDS: AZITHROMYCIN 500 MG in SODIUM CHLORIDE 0.9% 250 ML IVPB SCH (02:49)
[2025-02-09] MEDS ORDERED: cefTRIAXone 2 GM in DEXTROSE 5% IN WATER 50 ML IVPB SCH (04:00)
[2025-02-09 06:30] LABS: African American GFR (CKD) >90 (>60 ml/min/1.73 sqM); Non-African American GFR(CKD) >90 (>60 ml/min/1.73 sqM)
--- NOTE | 2025-02-09 13:04 | P.PN ---
Subjective Progress Note Date: 02/09/25 This is a 39-year-old female with a history of previous IV drug abuse currently on methadone, chronic tobacco dependence, vapes, MTHFR clotting disorder with previous PE/DVT who had not been on blood thinners for quite some time due to cost and an ability to regulate warfarin, obesity. Approximately 10 days ago she was seen at [facility] in the emergency department and was told she may have pneumonia and was given Levaquin which she took for 7 days. She had no significant improvement and presented here to the emergency room last evening with worsening shortness of breath, coughing up blood and high fevers. She was considerably weak and barely able to get out of bed. CT angiogram ruled out pulmonary embolism. There is necrotizing left lower lobe pneumonia with multiple cystic airspace developing. Venous Doppler of the left lower extremity ruled out DVT. White count 14.4. Hemoglobin 9.4. Platelets 244. Sodium 135. Potassium 3.0. Bicarb 27. BUN 4. Creatinine 0.50. Glucose 101. Urinalysis clean. Viral screen negative for influenza A/B, RSV or COVID. She is seen today in consultation on the regular medical floor. She is currently sitting up in bed. Awake and alert in no acute distress. Maintaining O2 saturations in the 90s on room air oxygen. She had a Tmax on arrival of 102.0. She is currently afebrile. No tachycardia. No tachypnea. Blood pressure stable. The patient is seen today February 09, 2025 in follow-up on the regular medical floor. She is currently sitting up in bed. Awake and alert in no acute distress. Breathing easier today compared to yesterday. Continues to maintain good O2 saturations in the mid 90s on room air oxygen. She does have some rib pain from coughing. She is afebrile. Hemodynamically stable. Blood culture pending. Sputum culture pending. Creatinine 0.50. GFR greater than 90. She remains on cefepime, vancomycin and azithromycin. Infectious disease is on the case. She remains on Robitussin as needed. NicoDerm patch in place. Objective - Vital Signs Vital signs: Vital Signs Temp 98.0 F 02/09/25 06:46 Pulse 73 02/09/25 06:46 Resp 20 02/09/25 06:46 BP 108/70 02/09/25 06:46 Pulse Ox 95 02/09/25 06:46 FiO2 Intake & Output 02/08/25 02/09/25 02/09/25 18:59 06:59 18:59 Intake Total 100.5 2510 Balance 100.5 2510 Intake: Intake, IV Titration 100.5 2510 Amount Azithromycin 500 mg In 250 Sodium Chloride 0.9% 250 ml @ 250 mls/hr IVPB DAILY@0200 [facility] Rx#: [id number] Cefepime 2 gm In Dextrose 200 5% in Water 100 ml @ 25 mls/hr IVPB Q8HR [facility] Rx#: [id number] Heparin Sod,Pork in 0.45% 100.5 NaCl 25,000 unit In 0.45 % NaCl 1 250ml.bag @ 9. 186 UNITS/KG/HR 10 mls/hr IV .Q24H [facility] Rx#: [id number] Sodium Chloride 0.9% 1, 1560 000 ml @ 130 mls/hr IV . Q7H42M [facility] Rx#:[id number] Vancomycin 1,750 mg In 500 Sodium Chloride 0.9% 500 ml 500 ml @ 167 mls/hr IVPB Q8H [facility] Rx#: [id number] Other: Voiding Method Toilet Diaper - Exam GENERAL EXAM: Alert, active, 39-year-old female, on room air oxygen, fairly comfortable in no apparent distress. HEAD: Normocephalic. EYES: Normal reaction of pupils, equal size. NOSE: Clear with pink turbinates. THROAT: No erythema or exudates. NECK: No masses, no JVD. CHEST: No chest wall deformity. LUNGS: Equal air entry with no crackles, wheeze, rhonchi or dullness. CVS: S1 and S2 normal with no audible murmur, regular rhythm. ABDOMEN: No hepatosplenomegaly, normal bowel sounds, no guarding or rigidity. SPINE: No scoliosis or deformity SKIN: No rashes CENTRAL NERVOUS SYSTEM: No focal deficits, tone is normal in all 4 extremities. EXTREMITIES: There is no peripheral edema. No clubbing, no cyanosis. Peripheral pulses are intact. - Labs CBC & Chem 7: 02/08/25 06:05 02/09/25 06:04 Labs: Abnormal Lab Results - Last 24 Hours (Table) 02/09/25 Range/Units 06:04 Creatinine 0.50 L (0.52-1.04) mg/dL Microbiology - Last 24 Hours (Table) 02/07/25 22:11 Blood Culture - Preliminary Blood 02/08/25 10:35 Gram Stain - Preliminary Sputum Assessment and Plan Assessment: Acute community-acquired necrotizing left lower lobe pneumonia with multiple cystic airspaces developing Febrile illness secondary to above, resolved Leukocytosis secondary to above, improving Chronic and ongoing tobacco dependence including vaping History of IV drug abuse, currently on methadone History of MTHFR gene mutation History of previous PE/DVT, not on anticoagulants for years due to cost History of bipolar disorder Anxiety/depression Obesity with a BMI of 35.4 kg/m Plan: The patient was seen and evaluated Labs and medications reviewed Currently stable on room air oxygen Initiated on vancomycin, cefepime Continued on azithromycin Continue albuterol as needed Continue Robitussin as needed Sputum sample obtained Decrease IV fluids to KVO Chest x-ray in a.m. Educated regarding smoking cessation NicoDerm patch in place We will continue to follow I have personally seen and examined the patient, performed the documentation and the assessment and plan as written. Number of minutes spent on the visit: 10 Dictation was produced using [employer] dictation software. Please excuse any grammatical, word or spelling errors.
--- NOTE | 2025-02-09 13:55 | P.PN ---
Subjective Progress Note Date: 02/09/25 patient 39-year-old lady with past medical history significant for DVT who presents the ER because of shortness of breath and fever. Patient apparently was seen at [facility] about 2 weeks ago with similar complaints and was discharged on Levaquin. Patient is very anxious apparently has lost her mom recently. Patient stated that she has been feeling feverish at home. Patient has been complaining of cough, complaining of shortness of breath at rest as well exertion. Patient also complaining of nausea and vomiting. Patient is not able to keep anything down. Complaining of pain in her lower extremities as well. Because of the symptoms, patient came to the ER Initial lab work done in the ER showed WBC 19.7, hemoten 0.6, platelet count 279, sodium 110, potassium 2.8, BUN 12 4, creatinine 0.64, magnesium 1.5, AST 39, ALT 20 UA done was negative for infection Influenza A not detected Influenza B not detected RSV not detected COVID-19 not detected EKG done in the ER showed heart rate of 93, no ST segment elevation or depression seen, no T-wave inversions seen. CT chest PE protocol done showed necrotizing left lower lobe pneumonia with multiple cystic airspaces Duplex ultrasound of lower extremity showed no evidence of DVT Patient admitted to internal medicine service 02/09. Patient examined. States she feels better. Still complaining of shortness of breath and productive cough REVIEW OF SYSTEMS: CONSTITUTIONAL: No fever, no malaise,. CARDIOVASCULAR: No chest pain, no palpitations, no syncope. PULMONARY: as mentioned above GASTROINTESTINAL: No diarrhea, no nausea, no vomiting, no abdominal pain. NEUROLOGICAL: No headaches, no weakness, PHYSICAL EXAMINATION: GENERAL: The patient is alert and oriented x3, not in any acute distress. Well developed, well nourished. HEENT: Pupils are round and equally reacting to light. EOMI. No scleral icterus. No conjunctival pallor. Normocephalic, atraumatic. No pharyngeal erythema. No thyromegaly. CARDIOVASCULAR: S1 and S2 present. No murmurs, rubs, or gallops. PULMONARY: Coarse breath sound bilaterally, no wheeze audible. ABDOMEN: Soft, nontender, nondistended, normoactive bowel sounds. No palpable organomegaly. MUSCULOSKELETAL: No joint swelling or deformity. EXTREMITIES: No cyanosis, clubbing, or pedal edema. NEUROLOGICAL: Gross neurological examination did not reveal any focal deficits. SKIN: No rashes. Assessment and plan Bacterial pneumonia Sepsis Leukocytosis Hyponatremia Hypokalemia Hypomagnesemia Monitor vital signs Monitor CBC Monitor CMP Continue telemetry monitoring Follow-up on blood cultures Follow-up sputum cultures Continue IV cefepime, azithromycin. DC Vanco Continue breathing treatment ID following Pulmonology following Labs and medication were reviewed.. Continue same treatment. Continue with symptomatic treatment. Resume home medication. Monitor labs and vitals. DVT and GI prophylaxis. Further recommendations as per clinical course of the patient Dictation was produced using [employer] dictation software. please excuse any grammatical, word or spelling errors. Objective - Vital Signs Vital signs: Vital Signs Temp 98.0 F 02/09/25 06:46 Pulse 73 02/09/25 06:46 Resp 20 02/09/25 06:46 BP 108/70 02/09/25 06:46 Pulse Ox 95 02/09/25 06:46 FiO2 Intake & Output 02/08/25 02/09/25 02/09/25 18:59 06:59 18:59 Intake Total 100.5 2510 Balance 100.5 2510 Intake: Intake, IV Titration 100.5 2510 Amount Azithromycin 500 mg In 250 Sodium Chloride 0.9% 250 ml @ 250 mls/hr IVPB DAILY@0200 [facility] Rx#: [id number] Cefepime 2 gm In Dextrose 200 5% in Water 100 ml @ 25 mls/hr IVPB Q8HR [facility] Rx#: [id number] Heparin Sod,Pork in 0.45% 100.5 NaCl 25,000 unit In 0.45 % NaCl 1 250ml.bag @ 9. 186 UNITS/KG/HR 10 mls/hr IV .Q24H [facility] Rx#: [id number] Sodium Chloride 0.9% 1, 1560 000 ml @ 130 mls/hr IV . Q7H42M [facility] Rx#:[id number] Vancomycin 1,750 mg In 500 Sodium Chloride 0.9% 500 ml 500 ml @ 167 mls/hr IVPB Q8H [facility] Rx#: [id number] Other: Voiding Method Toilet Diaper - Labs CBC & Chem 7: 02/08/25 06:05 02/09/25 06:04 Labs: Abnormal Lab Results - Last 24 Hours (Table) 02/09/25 Range/Units 06:04 Creatinine 0.50 L (0.52-1.04) mg/dL Microbiology - Last 24 Hours (Table) 02/07/25 22:11 Blood Culture - Preliminary Blood 02/08/25 10:35 Gram Stain - Preliminary Sputum
--- NOTE | 2025-02-09 16:31 | P.PN ---
Subjective Progress Note Date: 02/09/25 Principal diagnosis: Reason for follow-up is necrotizing pneumonia Patient is a 39-year-old female with a past medical history significant for DVT PE anxiety bipolar depression currently everyday smoker presenting to the hospital for evaluation of increasing shortness of breath and cough patient has been diagnosed with necrotizing pneumonia left lower lobe. On today's evaluation that is 02/09/2025, Patient did have resolution of her fever and is afebrile this morning patient denies having any chest pain shortness of breath and cough has decreased in intensity, the patient is currently on room air, patient denies any abdominal pain no diarrhea no nausea no vomiting. Patient white count is down to 14.4 as of yesterday no CBC was done today creatinine 0.50 sputum is growing presumptive Staph aureus Objective - Vital Signs Vital signs: Vital Signs Temp 98.0 F 02/09/25 06:46 Pulse 73 02/09/25 06:46 Resp 20 02/09/25 06:46 BP 108/70 02/09/25 06:46 Pulse Ox 95 02/09/25 06:46 FiO2 Intake & Output 02/08/25 02/09/25 02/09/25 18:59 06:59 18:59 Intake Total 100.5 2510 Balance 100.5 2510 Intake: Intake, IV Titration 100.5 2510 Amount Azithromycin 500 mg In 250 Sodium Chloride 0.9% 250 ml @ 250 mls/hr IVPB DAILY@0200 IVONE Rx#: [id number] Cefepime 2 gm In Dextrose 200 5% in Water 100 ml @ 25 mls/hr IVPB Q8HR IVONE Rx#: [id number] Heparin Sod,Pork in 0.45% 100.5 NaCl 25,000 unit In 0.45 % NaCl 1 250ml.bag @ 9. 186 UNITS/KG/HR 10 mls/hr IV .Q24H IVONE Rx#: [id number] Sodium Chloride 0.9% 1, 1560 000 ml @ 130 mls/hr IV . Q7H42M IVONE Rx#:[id number] Vancomycin 1,750 mg In 500 Sodium Chloride 0.9% 500 ml 500 ml @ 167 mls/hr IVPB Q8H IVONE Rx#: [id number] Other: Voiding Method Toilet Diaper - Exam GENERAL DESCRIPTION: Middle-age female lying in bed in no distress RESPIRATORY SYSTEM: Unlabored breathing , decreased breath sounds at bases HEART: S1 S2 regular rate and rhythm , ABDOMEN: Soft , no tenderness EXTREMITIES: No edema feet - Labs CBC & Chem 7: 02/08/25 06:05 02/09/25 06:04 Labs: Abnormal Lab Results - Last 24 Hours (Table) 02/09/25 Range/Units 06:04 Creatinine 0.50 L (0.52-1.04) mg/dL Microbiology - Last 24 Hours (Table) 02/08/25 10:35 Gram Stain - Preliminary Sputum Sputum Culture - Preliminary Presumptive Staph aureus 02/07/25 22:11 Blood Culture - Preliminary Blood Assessment and Plan (1) Sepsis Current Visit: Yes Status: Acute Code(s): A41.9 - SEPSIS, UNSPECIFIED ORGANISM SNOMED Code(s): 58936501 (2) Pneumonia Current Visit: Yes Status: Acute Code(s): J18.9 - PNEUMONIA, UNSPECIFIED ORGANISM SNOMED Code(s): 572948313 Plan: 1patient presented to hospital with sepsis in this patient who did have fever tachycardia elevated white count meeting criteria for SIRS/sepsis source is pneumonia in this patient recently treated with oral Levaquin failing outpatient will require therapy concerning for possible necrotizing pneumonia related to resistant gram-positive/gram-negative pathogen. 2sputum is currently growing Staph aureus sensitivities pending 3patient will be treated with vancomycin pharmacy to dose and cefepime while waiting for the culture to finalize. Dictation was produced using [employer] dictation software. please excuse any grammatical, word or spelling errors. Time with Patient: Less than 30
[2025-02-09] MEDS: VANCOMYCIN TROUGH DUE 1 EACH MISC MISCELLANE ONE (18:06)
[2025-02-10 04:21] LABS: ALT 20 U/L (4-34); AST 38 U/L (14-36); African American GFR (CKD) >90 (>60 ml/min/1.73 sqM); Albumin 2.2 g/dL (3.5-5.0); Albumin/Globulin Ratio 0.6; Alkaline Phosphatase 128 U/L (38-126); Anion Gap 8 mmol/L; Blood Urea Nitrogen <2 mg/dL (7-17); Carbon Dioxide 23 mmol/L (22-30); Chloride 103 mmol/L (98-107); Globulin 3.6 g/dL; Glucose 80 mg/dL (74-99); Non-African American GFR(CKD) >90 (>60 ml/min/1.73 sqM); Potassium 3.8 mmol/L (3.5-5.1); Sodium 134 mmol/L (137-145); Total Bilirubin 0.4 mg/dL (0.2-1.3); Total Protein 5.8 g/dL (6.3-8.2)
--- NOTE | 2025-02-10 07:37 | XR ---
EXAMINATION TYPE: XR chest 2V DATE OF EXAM: 02/10/2025 6:23 AM COMPARISON: CT 02/07/2025 CLINICAL INDICATION: Female, 39 years old with history of Follow up pneumonia, , TECHNIQUE: PA and lateral views FINDINGS: The cardiomediastinal silhouette, aorta, and pulmonary vasculature are within normal limits. Ongoing dense left mid and lower lung airspace disease with internal areas of air density. Trace left pleural effusion. IMPRESSION: Ongoing extensive left lower lobe cavitary pneumonia. Trace left pleural effusion. [facility], Workstation: [facility], 02/10/2025 7:35 AM
[2025-02-10 08:14] LABS: Basophils # (A) 0.05 10*3/uL (0.00-0.10); Basophils % (A) 0.6 %; Eosinophils % (A) 2.5 %; HCT 31.2 % (37.2-46.3); HGB 10.6 g/dL (12.0-15.0); Lymphocytes # (A) 1.62 10*3/uL (0.90-5.00); Lymphocytes % (A) 20.4 %; MCH 28.2 pg (27.0-32.0); Mean Platelet Volume 9.5 fL (9.5-12.2); Monocytes # (A) 0.49 10*3/uL (0.20-1.00); Monocytes % (A) 6.2 %; Neutrophils # (A) 5.29 10*3/uL (1.80-7.70); Neutrophils % (A) 66.5 %; Platelet Count 304 10*3/uL (140-440); RBC 3.76 10*6/uL (4.10-5.20); RDW 13.3 % (11.5-14.5); WBC 7.95 10*3/uL (4.50-10.00)
[2025-02-10] MEDS: ONDANSETRON 4 MG/2 ML VIAL IVP PRN (14:20)
--- NOTE | 2025-02-10 14:22 | P.PN ---
Subjective Progress Note Date: 02/10/25 This is a 39-year-old female with a history of previous IV drug abuse currently on methadone, chronic tobacco dependence, vapes, MTHFR clotting disorder with previous PE/DVT who had not been on blood thinners for quite some time due to cost and an ability to regulate warfarin, obesity. Approximately 10 days ago she was seen at [facility] in the emergency department and was told she may have pneumonia and was given Levaquin which she took for 7 days. She had no significant improvement and presented here to the emergency room last evening with worsening shortness of breath, coughing up blood and high fevers. She was considerably weak and barely able to get out of bed. CT angiogram ruled out pulmonary embolism. There is necrotizing left lower lobe pneumonia with multiple cystic airspace developing. Venous Doppler of the left lower extremity ruled out DVT. White count 14.4. Hemoglobin 9.4. Platelets 244. Sodium 135. Potassium 3.0. Bicarb 27. BUN 4. Creatinine 0.50. Glucose 101. Urinalysis clean. Viral screen negative for influenza A/B, RSV or COVID. She is seen today in consultation on the regular medical floor. She is currently sitting up in bed. Awake and alert in no acute distress. Maintaining O2 saturations in the 90s on room air oxygen. She had a Tmax on arrival of 102.0. She is currently afebrile. No tachycardia. No tachypnea. Blood pressure stable. The patient is seen today February 09, 2025 in follow-up on the regular medical floor. She is currently sitting up in bed. Awake and alert in no acute distress. Breathing easier today compared to yesterday. Continues to maintain good O2 saturations in the mid 90s on room air oxygen. She does have some rib pain from coughing. She is afebrile. Hemodynamically stable. Blood culture pending. Sputum culture pending. Creatinine 0.50. GFR greater than 90. She remains on cefepime, vancomycin and azithromycin. Infectious disease is on the case. She remains on Robitussin as needed. NicoDerm patch in place. The patient is seen today February 10, 2025 in follow-up on the regular medical floor. She is currently resting in bed. Awake and alert in no acute distress. Maintaining O2 saturations in the 90s on room air. She is been afebrile. Hemodynamically stable. Breathing easier today compared to yesterday. Chest x- ray continues to show an extensive left lower lobe pneumonia. Sputum culture showing presumptive Staph aureus. Nasal screen is positive for MRSA. White count 7.9. Hemoglobin 10.6. Platelets 304. Sodium 134. Potassium 3.8. Bicarb 23. BUN 2. Creatinine 0.53. Glucose 80. Procalcitonin is less than 0.20. She is currently on cefepime per ID service. She remains on bronchodilators. NicoDerm patch in place. Normal saline at 20 mL/h Objective - Vital Signs Vital signs: Vital Signs Temp 97.7 F 02/10/25 08:00 Pulse 80 02/10/25 08:38 Resp 18 02/10/25 08:00 BP 126/75 02/10/25 08:00 Pulse Ox 95 02/10/25 08:00 FiO2 Intake & Output 02/09/25 02/10/25 02/10/25 18:59 06:59 18:59 Intake Total 340 Balance 340 Intake: Intake, IV Titration 340 Amount Cefepime 2 gm In Dextrose 100 5% in Water 100 ml @ 25 mls/hr IVPB Q8HR IVONE Rx#: [id number] Sodium Chloride 0.9% 1, 240 000 ml @ 20 mls/hr IV . Q24H IVONE Rx#:[id number] Other: # Voids 3 3 # Bowel Movements 1 - Exam GENERAL EXAM: Alert, active, 39-year-old female, on room air oxygen, comfortable in no apparent distress. HEAD: Normocephalic. EYES: Normal reaction of pupils, equal size. NOSE: Clear with pink turbinates. THROAT: No erythema or exudates. NECK: No masses, no JVD. CHEST: No chest wall deformity. LUNGS: Equal air entry with no crackles, wheeze, rhonchi or dullness. CVS: S1 and S2 normal with no audible murmur, regular rhythm. ABDOMEN: No hepatosplenomegaly, normal bowel sounds, no guarding or rigidity. SPINE: No scoliosis or deformity SKIN: No rashes CENTRAL NERVOUS SYSTEM: No focal deficits, tone is normal in all 4 extremities. EXTREMITIES: There is no peripheral edema. No clubbing, no cyanosis. Peripheral pulses are intact. - Labs CBC & Chem 7: 02/10/25 07:49 02/10/25 02:25 Labs: Abnormal Lab Results - Last 24 Hours (Table) 02/10/25 02/10/25 Range/Units 02:25 07:49 RBC 3.76 L (4.10-5.20) 10*6/uL Hgb 10.6 L (12.0-15.0) g/dL Hct 31.2 L (37.2-46.3) % Immature Gran # 0.30 H (0.00-0.04) 10*3/uL Sodium 134 L (137-145) mmol/L BUN <2 L (7-17) mg/dL Calcium 8.0 L (8.4-10.2) mg/dL AST 38 H (14-36) U/L Alkaline Phosphatase 128 H (38-126) U/L Total Protein 5.8 L (6.3-8.2) g/dL Albumin 2.2 L (3.5-5.0) g/dL Microbiology - Last 24 Hours (Table) 02/08/25 18:18 Nasal Screen MRSA/MSSA - Final Nasal Swab Methicillin resist S. aureus 02/07/25 22:11 Blood Culture - Preliminary Blood 02/08/25 10:35 Gram Stain - Preliminary Sputum Sputum Culture - Preliminary Presumptive Staph aureus Assessment and Plan Assessment: Acute community-acquired necrotizing left lower lobe pneumonia with multiple cystic airspaces developing. Sputum culture showing presumptive MRSA. Nasal screen positive for MRSA. Currently on cefepime Febrile illness secondary to above, resolved Leukocytosis secondary to above, resolved Chronic and ongoing tobacco dependence including vaping History of IV drug abuse, currently on methadone History of MTHFR gene mutation History of previous PE/DVT, not on anticoagulants for years due to cost History of bipolar disorder Anxiety/depression Obesity with a BMI of 35.4 kg/m Plan: The patient was seen and evaluated Labs and medications reviewed Currently stable on room air oxygen Continued on cefepime Continue albuterol as needed Continue Robitussin as needed Educated regarding smoking cessation NicoDerm patch in place We will continue to follow I have personally seen and examined the patient, performed the documentation and the assessment and plan as written. Number of minutes spent on the visit: 10 Dictation was produced using [employer] dictation software. Please excuse any grammatical, word or spelling errors.
[2025-02-11 04:10] LABS: Basophils # (A) 0.05 10*3/uL (0.00-0.10); Basophils % (A) 0.7 %; Eosinophils % (A) 2.9 %; HGB 10.8 g/dL (12.0-15.0); Lymphocytes # (A) 1.93 10*3/uL (0.90-5.00); Lymphocytes % (A) 28.4 %; MCH 28.4 pg (27.0-32.0); MCHC 33.8 g/dL (32.0-37.0); MCV 84.2 fL (80.0-97.0); Mean Platelet Volume 9.4 fL (9.5-12.2); Monocytes # (A) 0.43 10*3/uL (0.20-1.00); Monocytes % (A) 6.3 %; Neutrophils # (A) 4.02 10*3/uL (1.80-7.70); Neutrophils % (A) 59.2 %; Platelet Count 299 10*3/uL (140-440); RDW 13.2 % (11.5-14.5)
[2025-02-11 04:13] LABS: ALT 19 U/L (4-34); African American GFR (CKD) >90 (>60 ml/min/1.73 sqM); Albumin 2.3 g/dL (3.5-5.0); Albumin/Globulin Ratio 0.6; Anion Gap 2 mmol/L; Blood Urea Nitrogen 4 mg/dL (7-17); Calcium 8.5 mg/dL (8.4-10.2); Carbon Dioxide 21 mmol/L (22-30); Chloride 108 mmol/L (98-107); Globulin 3.8 g/dL; Glucose 89 mg/dL (74-99); Non-African American GFR(CKD) >90 (>60 ml/min/1.73 sqM); Sodium 131 mmol/L (137-145); Total Bilirubin 0.4 mg/dL (0.2-1.3); Total Protein 6.1 g/dL (6.3-8.2)
[2025-02-11 04:14] LABS: AST 41 U/L (14-36); Alkaline Phosphatase 116 U/L (38-126); Potassium 4.8 mmol/L (3.5-5.1)
--- NOTE | 2025-02-11 06:20 | P.PN ---
Subjective Progress Note Date: 02/10/25 patient 39-year-old lady with past medical history significant for DVT who presents the ER because of shortness of breath and fever. Patient apparently was seen at [facility] about 2 weeks ago with similar complaints and was discharged on Levaquin. Patient is very anxious apparently has lost her mom recently. Patient stated that she has been feeling feverish at home. Patient has been complaining of cough, complaining of shortness of breath at rest as well exertion. Patient also complaining of nausea and vomiting. Patient is not able to keep anything down. Complaining of pain in her lower extremities as well. Because of the symptoms, patient came to the ER Initial lab work done in the ER showed WBC 19.7, hemoten 0.6, platelet count 279, sodium 110, potassium 2.8, BUN 12 4, creatinine 0.64, magnesium 1.5, AST 39, ALT 20 UA done was negative for infection Influenza A not detected Influenza B not detected RSV not detected COVID-19 not detected EKG done in the ER showed heart rate of 93, no ST segment elevation or depression seen, no T-wave inversions seen. CT chest PE protocol done showed necrotizing left lower lobe pneumonia with multiple cystic airspaces Duplex ultrasound of lower extremity showed no evidence of DVT Patient admitted to internal medicine service 02/09. Patient examined. States she feels better. Still complaining of shortness of breath and productive cough 02/10/2025 Patient is seen and evaluated in follow-up with infectious disease following along with pulmonary. Patient reports is feeling better although continues with significant pain in the ribs and has not been receiving her methadone. Patient is maintained on Dilaudid and will reconfirm with biomed patient's dosing to resume methadone. Culture showing staph with infectious disease following and will discuss regarding discharge planning and medications for discharge. Patient continues to report significant shortness of breath with minimal exertion. Encouraged to increase activity as tolerated REVIEW OF SYSTEMS: CONSTITUTIONAL: No fever, no malaise,. CARDIOVASCULAR: No chest pain, no palpitations, no syncope. PULMONARY: as mentioned above GASTROINTESTINAL: No diarrhea, no nausea, no vomiting, no abdominal pain. NEUROLOGICAL: No headaches, no weakness, PHYSICAL EXAMINATION: GENERAL: The patient is alert and oriented x3, not in any acute distress. Anxious well developed, well nourished. Obese HEENT: Pupils are round and equally reacting to light. EOMI. No scleral icterus. No conjunctival pallor. Normocephalic, atraumatic. No pharyngeal erythema. No thyromegaly. CARDIOVASCULAR: S1 and S2 present. No murmurs, rubs, or gallops. PULMONARY: Coarse breath sound bilaterally, no wheeze audible. ABDOMEN: Soft, nontender, nondistended, normoactive bowel sounds. No palpable organomegaly. MUSCULOSKELETAL: No joint swelling or deformity. EXTREMITIES: No cyanosis, clubbing, or pedal edema. NEUROLOGICAL: Gross neurological examination did not reveal any focal deficits. SKIN: No rashes. Assessment: Bacterial pneumonia with culture showing MSSA Sepsis, present on admission secondary to above Leukocytosis trending down Hyponatremia, improving after IV hydration Hypokalemia, replaced and improved Hypomagnesemia, improved after replacement Currently maintained on methadone and follows at [facility] clinic daily for dosing Obesity with a BMI of 35.4 GI prophylaxis DVT prophylaxis Full code Plan: Patient being followed by pulmonary along with infectious disease maintained on IV antibiotics and awaiting cultures to determine appropriate antibiotics on discharge Patient continues to report significant shortness of breath and encouraged incentive spirometer use, patient currently on room air although reports shortness of breath with minimal exertion Encouraged to increase activity as tolerated Repeat labs ordered and pending Awaiting finalized cultures to determine discharge antibiotics and will discuss with infectious disease regarding treatment plan moving forward Continue with breathing treatments Contacted [facility] in [place] phone number [phone] to determine appropriate dosing as patient takes methadone daily and goes to the clinic daily for administration Not quite ready for discharge and will discuss with consultations regarding discharge planning The impression and plan of care has been dictated by Griselda Kasper, Nurse Practitioner as directed. Dr. Stephanie MD I have performed a history and examination and MDM of this patient, discussed the same with the dictator, and agree with the dictator's assessment and plan as written ,documented as a scribe. Based on total visit time, I have performed more than 50% of the visit. Objective - Vital Signs Vital signs: Vital Signs Temp 97.7 F 02/10/25 08:00 Pulse 80 02/10/25 08:38 Resp 18 02/10/25 08:00 BP 126/75 02/10/25 08:00 Pulse Ox 95 02/10/25 08:00 FiO2 Intake & Output 02/09/25 02/10/25 02/10/25 18:59 06:59 18:59 Intake Total 340 Balance 340 Intake: Intake, IV Titration 340 Amount Cefepime 2 gm In Dextrose 100 5% in Water 100 ml @ 25 mls/hr IVPB Q8HR IVONE Rx#: [id number] Sodium Chloride 0.9% 1, 240 000 ml @ 20 mls/hr IV . Q24H IVONE Rx#:[id number] Other: # Voids 3 3 # Bowel Movements 1 - Labs CBC & Chem 7: 02/11/25 03:32 02/11/25 03:32 Labs: Abnormal Lab Results - Last 24 Hours (Table) 02/10/25 02/10/25 Range/Units 02:25 07:49 RBC 3.76 L (4.10-5.20) 10*6/uL Hgb 10.6 L (12.0-15.0) g/dL Hct 31.2 L (37.2-46.3) % Immature Gran # 0.30 H (0.00-0.04) 10*3/uL Sodium 134 L (137-145) mmol/L BUN <2 L (7-17) mg/dL Calcium 8.0 L (8.4-10.2) mg/dL AST 38 H (14-36) U/L Alkaline Phosphatase 128 H (38-126) U/L Total Protein 5.8 L (6.3-8.2) g/dL Albumin 2.2 L (3.5-5.0) g/dL Microbiology - Last 24 Hours (Table) 02/08/25 18:18 Nasal Screen MRSA/MSSA - Final Nasal Swab Methicillin resist S. aureus 02/07/25 22:11 Blood Culture - Preliminary Blood 02/08/25 10:35 Gram Stain - Preliminary Sputum Sputum Culture - Preliminary Presumptive Staph aureus
[2025-02-11] MEDS: METHADONE 5 MG TAB PO SCH (07:45)
[2025-02-11] MEDS: METHADONE 10 MG TAB PO SCH (07:45)
[2025-02-11] MEDS ORDERED: VANCOMYCIN IV PER PHARMACY 1 EACH MISC MISCELLANE PRN (09:27)
[2025-02-11] MEDS: VANCOMYCIN 2,000 MG in SODIUM CHLORIDE 0.9% 500 ML 500 ML IVPB SCH (11:22)
--- NOTE | 2025-02-11 12:32 | P.PN ---
Subjective Progress Note Date: 02/11/25 This is a 39-year-old female with a history of previous IV drug abuse currently on methadone, chronic tobacco dependence, vapes, MTHFR clotting disorder with previous PE/DVT who had not been on blood thinners for quite some time due to cost and an ability to regulate warfarin, obesity. Approximately 10 days ago she was seen at [facility] in the emergency department and was told she may have pneumonia and was given Levaquin which she took for 7 days. She had no significant improvement and presented here to the emergency room last evening with worsening shortness of breath, coughing up blood and high fevers. She was considerably weak and barely able to get out of bed. CT angiogram ruled out pulmonary embolism. There is necrotizing left lower lobe pneumonia with multiple cystic airspace developing. Venous Doppler of the left lower extremity ruled out DVT. White count 14.4. Hemoglobin 9.4. Platelets 244. Sodium 135. Potassium 3.0. Bicarb 27. BUN 4. Creatinine 0.50. Glucose 101. Urinalysis clean. Viral screen negative for influenza A/B, RSV or COVID. She is seen today in consultation on the regular medical floor. She is currently sitting up in bed. Awake and alert in no acute distress. Maintaining O2 saturations in the 90s on room air oxygen. She had a Tmax on arrival of 102.0. She is currently afebrile. No tachycardia. No tachypnea. Blood pressure stable. The patient is seen today February 09, 2025 in follow-up on the regular medical floor. She is currently sitting up in bed. Awake and alert in no acute distress. Breathing easier today compared to yesterday. Continues to maintain good O2 saturations in the mid 90s on room air oxygen. She does have some rib pain from coughing. She is afebrile. Hemodynamically stable. Blood culture pending. Sputum culture pending. Creatinine 0.50. GFR greater than 90. She remains on cefepime, vancomycin and azithromycin. Infectious disease is on the case. She remains on Robitussin as needed. NicoDerm patch in place. The patient is seen today February 10, 2025 in follow-up on the regular medical floor. She is currently resting in bed. Awake and alert in no acute distress. Maintaining O2 saturations in the 90s on room air. She is been afebrile. Hemodynamically stable. Breathing easier today compared to yesterday. Chest x- ray continues to show an extensive left lower lobe pneumonia. Sputum culture showing presumptive Staph aureus. Nasal screen is positive for MRSA. White count 7.9. Hemoglobin 10.6. Platelets 304. Sodium 134. Potassium 3.8. Bicarb 23. BUN 2. Creatinine 0.53. Glucose 80. Procalcitonin is less than 0.20. She is currently on cefepime per ID service. She remains on bronchodilators. NicoDerm patch in place. Normal saline at 20 mL/h The patient is seen today February 11, 2025 in follow-up on the regular medical floor. She is awake and alert in no acute distress. Sitting up in bed. Maintaining good O2 saturations in the 90s on room air. She is afebrile. Hemodynamically stable. White count 6.8. Hemoglobin 10.8. Platelets 299. Sodium 131. Potassium 4.8. Bicarb 21. BUN 4. Creatinine 0.50. Glucose 89. She remains on vancomycin. NicoDerm patch in place. Continued on her methadone. Albuterol as needed. Remains on Robitussin as needed. Objective - Vital Signs Vital signs: Vital Signs Temp 97.9 F 02/11/25 07:30 Pulse 81 02/11/25 07:30 Resp 20 02/11/25 07:30 BP 110/71 02/11/25 07:30 Pulse Ox 95 02/11/25 07:30 FiO2 Intake & Output 02/10/25 02/11/25 02/11/25 18:59 06:59 18:59 Other: # Voids 3 3 - Exam GENERAL EXAM: Alert, 39-year-old female, on room air oxygen, comfortable in no apparent distress. HEAD: Normocephalic. EYES: Normal reaction of pupils, equal size. NOSE: Clear with pink turbinates. THROAT: No erythema or exudates. NECK: No masses, no JVD. CHEST: No chest wall deformity. LUNGS: Equal air entry with few scattered rhonchi mainly over the left lung. CVS: S1 and S2 normal with no audible murmur, regular rhythm. ABDOMEN: No hepatosplenomegaly, normal bowel sounds, no guarding or rigidity. SPINE: No scoliosis or deformity SKIN: No rashes CENTRAL NERVOUS SYSTEM: No focal deficits, tone is normal in all 4 extremities. EXTREMITIES: There is no peripheral edema. No clubbing, no cyanosis. Peripheral pulses are intact. - Labs CBC & Chem 7: 02/11/25 03:32 02/11/25 03:32 Labs: Abnormal Lab Results - Last 24 Hours (Table) 02/11/25 02/11/25 Range/Units 03:32 03:32 RBC 3.80 L (4.10-5.20) 10*6/uL Hgb 10.8 L (12.0-15.0) g/dL Hct 32.0 L (37.2-46.3) % MPV 9.4 L (9.5-12.2) fL Immature Gran # 0.17 H (0.00-0.04) 10*3/uL Sodium 131 L (137-145) mmol/L Chloride 108 H (98-107) mmol/L Carbon Dioxide 21 L (22-30) mmol/L BUN 4 L (7-17) mg/dL Creatinine 0.50 L (0.52-1.04) mg/dL AST 41 H (14-36) U/L Total Protein 6.1 L (6.3-8.2) g/dL Albumin 2.3 L (3.5-5.0) g/dL Microbiology - Last 24 Hours (Table) 02/07/25 22:11 Blood Culture - Preliminary Blood 02/08/25 10:35 Gram Stain - Final Sputum Sputum Culture - Final Methicillin resist S. aureus Alyssa sp,not albicans/galbr Assessment and Plan Assessment: Acute community-acquired necrotizing left lower lobe pneumonia with multiple cystic airspaces developing. Sputum culture showing MRSA and Alyssa. Currently on vancomycin Febrile illness secondary to above, resolved Leukocytosis secondary to above, resolved Chronic and ongoing tobacco dependence including vaping History of IV drug abuse, currently on methadone History of MTHFR gene mutation History of previous PE/DVT, not on anticoagulants for years due to cost History of bipolar disorder Anxiety/depression Obesity with a BMI of 35.4 kg/m Plan: The patient was seen and evaluated Labs and medications reviewed Currently stable on room air oxygen Continued on Comycin Continue albuterol as needed Continue Robitussin as needed Educated regarding smoking cessation NicoDerm patch in place Home once antibiotics determined by ID service I have personally seen and examined the patient, performed the documentation and the assessment and plan as written. Number of minutes spent on the visit: 10 Dictation was produced using [employer] dictation software. Please excuse any grammatical, word or spelling errors.
--- NOTE | 2025-02-11 13:21 | P.PN ---
Subjective Progress Note Date: 02/10/25 Principal diagnosis: Reason for follow-up is necrotizing pneumonia Patient is a 39-year-old female with a past medical history significant for DVT PE anxiety bipolar depression currently everyday smoker presenting to the hospital for evaluation of increasing shortness of breath and cough patient has been diagnosed with necrotizing pneumonia left lower lobe. On today's evaluation that is 02/10/2025,the patient denies any fever or any chills, patient is breathing slightly comfortably on room air, the patient denies chest pain shortness of breath and cough has decreased in intensity, patient denies abdominal pain, no nausea vomiting or diarrhea. Patient did have a white count of 7.95 creatinine is 0.53 sputum is growing Staph aureus Objective - Vital Signs Vital signs: Vital Signs Temp 98.4 F 02/10/25 14:46 Pulse 83 02/10/25 14:46 Resp 20 02/10/25 14:46 BP 128/73 02/10/25 14:46 Pulse Ox 95 02/10/25 14:46 FiO2 Intake & Output 02/09/25 02/10/25 02/10/25 18:59 06:59 18:59 Intake Total 340 Balance 340 Intake: Intake, IV Titration 340 Amount Cefepime 2 gm In Dextrose 100 5% in Water 100 ml @ 25 mls/hr IVPB Q8HR IVONE Rx#: [id number] Sodium Chloride 0.9% 1, 240 000 ml @ 20 mls/hr IV . Q24H IVONE Rx#:[id number] Other: # Voids 3 3 # Bowel Movements 1 - Exam GENERAL DESCRIPTION: Middle-age female lying in bed in no distress RESPIRATORY SYSTEM: Unlabored breathing , decreased breath sounds at bases HEART: S1 S2 regular rate and rhythm , ABDOMEN: Soft , no tenderness EXTREMITIES: No edema feet - Labs CBC & Chem 7: 02/11/25 03:32 02/11/25 03:32 Labs: Abnormal Lab Results - Last 24 Hours (Table) 02/10/25 02/10/25 Range/Units 02:25 07:49 RBC 3.76 L (4.10-5.20) 10*6/uL Hgb 10.6 L (12.0-15.0) g/dL Hct 31.2 L (37.2-46.3) % Immature Gran # 0.30 H (0.00-0.04) 10*3/uL Sodium 134 L (137-145) mmol/L BUN <2 L (7-17) mg/dL Calcium 8.0 L (8.4-10.2) mg/dL AST 38 H (14-36) U/L Alkaline Phosphatase 128 H (38-126) U/L Total Protein 5.8 L (6.3-8.2) g/dL Albumin 2.2 L (3.5-5.0) g/dL Microbiology - Last 24 Hours (Table) 02/08/25 18:18 Nasal Screen MRSA/MSSA - Final Nasal Swab Methicillin resist S. aureus 02/07/25 22:11 Blood Culture - Preliminary Blood 02/08/25 10:35 Gram Stain - Preliminary Sputum Sputum Culture - Preliminary Presumptive Staph aureus Assessment and Plan (1) Sepsis Current Visit: Yes Status: Acute Code(s): A41.9 - SEPSIS, UNSPECIFIED ORGANISM SNOMED Code(s): 87876596 (2) Pneumonia Current Visit: Yes Status: Acute Code(s): J18.9 - PNEUMONIA, UNSPECIFIED ORGANISM SNOMED Code(s): 070875670 Plan: 1patient presented to hospital with sepsis in this patient who did have fever tachycardia elevated white count meeting criteria for SIRS/sepsis source is pneumonia in this patient recently treated with oral Levaquin failing outpatient will require therapy concerning for possible necrotizing pneumonia related to resistant gram-positive/gram-negative pathogen. 2sputum is currently growing Staph aureus sensitivities pending, nasal MRSA swab is positive 3patient will be treated with vancomycin pharmacy to dose and will discontinue cefepime as no gram-negative Dictation was produced using [employer] dictation software. please excuse any grammatical, word or spelling errors. Time with Patient: Less than 30
--- NOTE | 2025-02-11 13:22 | P.PN ---
Subjective Progress Note Date: 02/11/25 Principal diagnosis: Reason for follow-up is necrotizing pneumonia Patient is a 39-year-old female with a past medical history significant for DVT PE anxiety bipolar depression currently everyday smoker presenting to the hospital for evaluation of increasing shortness of breath and cough patient has been diagnosed with necrotizing pneumonia left lower lobe. On today's evaluation that is 02/11/2025,the patient remains to be afebrile, patient is on room air not requiring supplemental oxygen and denies any shortness of breath no chest pain still complaining of cough up overall intensity has decreased. Patient denies having any nausea or vomiting, no abdominal pain and no diarrhea has been reported. The patient white count 6.80, creatinine 0.50 sputum finalized with MRSA Objective - Vital Signs Vital signs: Vital Signs Temp 97.9 F 02/11/25 07:30 Pulse 81 02/11/25 07:30 Resp 20 02/11/25 07:30 BP 110/71 02/11/25 07:30 Pulse Ox 95 02/11/25 07:30 FiO2 Intake & Output 02/10/25 02/11/25 02/11/25 18:59 06:59 18:59 Other: # Voids 3 3 - Exam GENERAL DESCRIPTION: Middle-age female lying in bed in no distress RESPIRATORY SYSTEM: Unlabored breathing , decreased breath sounds at bases HEART: S1 S2 regular rate and rhythm , ABDOMEN: Soft , no tenderness EXTREMITIES: No edema feet - Labs CBC & Chem 7: 02/11/25 03:32 02/11/25 03:32 Labs: Abnormal Lab Results - Last 24 Hours (Table) 02/11/25 02/11/25 Range/Units 03:32 03:32 RBC 3.80 L (4.10-5.20) 10*6/uL Hgb 10.8 L (12.0-15.0) g/dL Hct 32.0 L (37.2-46.3) % MPV 9.4 L (9.5-12.2) fL Immature Gran # 0.17 H (0.00-0.04) 10*3/uL Sodium 131 L (137-145) mmol/L Chloride 108 H (98-107) mmol/L Carbon Dioxide 21 L (22-30) mmol/L BUN 4 L (7-17) mg/dL Creatinine 0.50 L (0.52-1.04) mg/dL AST 41 H (14-36) U/L Total Protein 6.1 L (6.3-8.2) g/dL Albumin 2.3 L (3.5-5.0) g/dL Microbiology - Last 24 Hours (Table) 02/07/25 22:11 Blood Culture - Preliminary Blood 02/08/25 10:35 Gram Stain - Final Sputum Sputum Culture - Final Methicillin resist S. aureus Alyssa sp,not albicans/galbr Assessment and Plan (1) Sepsis Current Visit: Yes Status: Acute Code(s): A41.9 - SEPSIS, UNSPECIFIED ORGANISM SNOMED Code(s): 72448656 (2) Pneumonia Current Visit: Yes Status: Acute Code(s): J18.9 - PNEUMONIA, UNSPECIFIED ORGANISM SNOMED Code(s): 239806031 Plan: 1patient presented to hospital with sepsis in this patient who did have fever tachycardia elevated white count meeting criteria for SIRS/sepsis source is pneumonia in this patient recently treated with oral Levaquin failing outpatient will require therapy concerning for possible necrotizing pneumonia related to resistant gram-positive/gram-negative pathogen. 2sputum is currently growing MRSA, nasal MRSA swab is positive 3patient will get a PICC line and will advise a 10-day course of IV vancomycin on discharge cannot use Zyvox because of drug interaction with her other medications Dictation was produced using [employer] dictation software. please excuse any grammatical, word or spelling errors. Time with Patient: Less than 30
[2025-02-11] MEDS: HYDROmorphone 2 MG TAB PO PRN (17:54)
[2025-02-12 07:34] LABS: African American GFR (CKD) >90 (>60 ml/min/1.73 sqM); Anion Gap 4 mmol/L; Blood Urea Nitrogen <2 mg/dL (7-17); Calcium 8.3 mg/dL (8.4-10.2); Carbon Dioxide 24 mmol/L (22-30); Chloride 109 mmol/L (98-107); Glucose 89 mg/dL (74-99); Non-African American GFR(CKD) >90 (>60 ml/min/1.73 sqM); Sodium 137 mmol/L (137-145)
[2025-02-12] MEDS: METHADONE 10 MG TAB PO SCH (08:04)
--- NOTE | 2025-02-12 09:44 | P.PN ---
Subjective Progress Note Date: 02/11/25 patient 39-year-old lady with past medical history significant for DVT who presents the ER because of shortness of breath and fever. Patient apparently was seen at [facility] [place] about 2 weeks ago with similar complaints and was discharged on Levaquin. Patient is very anxious apparently has lost her mom recently. Patient stated that she has been feeling feverish at home. Patient has been complaining of cough, complaining of shortness of breath at rest as well exertion. Patient also complaining of nausea and vomiting. Patient is not able to keep anything down. Complaining of pain in her lower extremities as well. Because of the symptoms, patient came to the ER Initial lab work done in the ER showed WBC 19.7, hemoten 0.6, platelet count 279, sodium 110, potassium 2.8, BUN 12 4, creatinine 0.64, magnesium 1.5, AST 39, ALT 20 UA done was negative for infection Influenza A not detected Influenza B not detected RSV not detected COVID-19 not detected EKG done in the ER showed heart rate of 93, no ST segment elevation or depression seen, no T-wave inversions seen. CT chest PE protocol done showed necrotizing left lower lobe pneumonia with multiple cystic airspaces Duplex ultrasound of lower extremity showed no evidence of DVT Patient admitted to internal medicine service 02/09. Patient examined. States she feels better. Still complaining of shortness of breath and productive cough 02/10/2025 Patient is seen and evaluated in follow-up with infectious disease following along with pulmonary. Patient reports is feeling better although continues with significant pain in the ribs and has not been receiving her methadone. Patient is maintained on Dilaudid and will reconfirm with biomed patient's dosing to resume methadone. Culture showing staph with infectious disease following and will discuss regarding discharge planning and medications for discharge. Patient continues to report significant shortness of breath with minimal exertion. Encouraged to increase activity as tolerated 02/11/2025 Patient is seen in follow-up today has received a PICC line and awaiting insurance authorization for discharge with continued IV antibiotic therapy per ID recommendations. Pulmonary has cleared the patient's once antibiotics are arranged. Patient would like to go but is agreeable to waiting for the verification of coverage. Patient is afebrile remains on room air and shortness of breath is improving. Encouraged continued increase activity as tolerated. REVIEW OF SYSTEMS: CONSTITUTIONAL: No fever, no malaise,. CARDIOVASCULAR: No chest pain, no palpitations, no syncope. PULMONARY: as mentioned above GASTROINTESTINAL: No diarrhea, no nausea, no vomiting, no abdominal pain. NEUROLOGICAL: No headaches, no weakness, PHYSICAL EXAMINATION: GENERAL: The patient is alert and oriented x3, not in any acute distress. well developed, well nourished. Obese HEENT: Pupils are round and equally reacting to light. EOMI. No scleral icterus. No conjunctival pallor. Normocephalic, atraumatic. No pharyngeal erythema. No thyromegaly. CARDIOVASCULAR: S1 and S2 present. No murmurs, rubs, or gallops. PULMONARY: Coarse breath sound bilaterally, no wheeze audible. ABDOMEN: Soft, nontender, nondistended, normoactive bowel sounds. No palpable organomegaly. MUSCULOSKELETAL: No joint swelling or deformity. EXTREMITIES: No cyanosis, clubbing, or pedal edema. NEUROLOGICAL: Gross neurological examination did not reveal any focal deficits. SKIN: No rashes. Assessment: Bacterial pneumonia with culture showing MRSA Sepsis, present on admission secondary to above Leukocytosis trending down Hyponatremia, improving after IV hydration Hypokalemia, replaced and improved Hypomagnesemia, improved after replacement Currently maintained on methadone and follows at [facility] daily for dosing Obesity with a BMI of 35.4 GI prophylaxis DVT prophylaxis Full code Plan: Patient being followed by pulmonary along with infectious disease maintained on IV antibiotics and awaiting cultures to determine appropriate antibiotics on discharge Patient continues to report significant shortness of breath and encouraged incentive spirometer use, patient currently on room air although reports shortness of breath with minimal exertion Encouraged to increase activity as tolerated Awaiting finalized cultures to determine discharge antibiotics and will discuss with infectious disease regarding treatment plan moving forward Continue with breathing treatments Contacted [facility] in [place] phone number [phone] to determine appropriate dosing as patient takes methadone daily and goes to the clinic daily for administration Awaiting insurance verification for IV antibiotics on discharge and patient has received a PICC line. Possible discharge planning in 24 hours The impression and plan of care has been dictated by Griselda Kasper, Nurse Practitioner as directed. Dr. Stephanie MD I have performed a history and examination and MDM of this patient, discussed the same with the dictator, and agree with the dictator's assessment and plan as written ,documented as a scribe. Based on total visit time, I have performed more than 50% of the visit. Objective - Vital Signs Vital signs: Vital Signs Temp 97.9 F 02/11/25 07:30 Pulse 81 02/11/25 07:30 Resp 20 02/11/25 07:30 BP 110/71 02/11/25 07:30 Pulse Ox 95 02/11/25 07:30 FiO2 Intake & Output 02/10/25 02/11/25 02/11/25 18:59 06:59 18:59 Other: # Voids 3 3 - Labs CBC & Chem 7: 02/11/25 03:32 02/12/25 06:44 Labs: Abnormal Lab Results - Last 24 Hours (Table) 02/11/25 02/11/25 Range/Units 03:32 03:32 RBC 3.80 L (4.10-5.20) 10*6/uL Hgb 10.8 L (12.0-15.0) g/dL Hct 32.0 L (37.2-46.3) % MPV 9.4 L (9.5-12.2) fL Immature Gran # 0.17 H (0.00-0.04) 10*3/uL Sodium 131 L (137-145) mmol/L Chloride 108 H (98-107) mmol/L Carbon Dioxide 21 L (22-30) mmol/L BUN 4 L (7-17) mg/dL Creatinine 0.50 L (0.52-1.04) mg/dL AST 41 H (14-36) U/L Total Protein 6.1 L (6.3-8.2) g/dL Albumin 2.3 L (3.5-5.0) g/dL Microbiology - Last 24 Hours (Table) 02/07/25 22:11 Blood Culture - Preliminary Blood 02/08/25 10:35 Gram Stain - Final Sputum Sputum Culture - Final Methicillin resist S. aureus Alyssa sp,not albicans/galbr
[2025-02-12] MEDS: IBUPROFEN 400 MG TAB PO PRN (12:43)
--- NOTE | 2025-02-12 12:50 | P.PN ---
Subjective Progress Note Date: 02/12/25 This is a 39-year-old female with a history of previous IV drug abuse currently on methadone, chronic tobacco dependence, vapes, MTHFR clotting disorder with previous PE/DVT who had not been on blood thinners for quite some time due to cost and an ability to regulate warfarin, obesity. Approximately 10 days ago she was seen at [facility] [place] in the emergency department and was told she may have pneumonia and was given Levaquin which she took for 7 days. She had no significant improvement and presented here to the emergency room last evening with worsening shortness of breath, coughing up blood and high fevers. She was considerably weak and barely able to get out of bed. CT angiogram ruled out pulmonary embolism. There is necrotizing left lower lobe pneumonia with multiple cystic airspace developing. Venous Doppler of the left lower extremity ruled out DVT. White count 14.4. Hemoglobin 9.4. Platelets 244. Sodium 135. Potassium 3.0. Bicarb 27. BUN 4. Creatinine 0.50. Glucose 101. Urinalysis clean. Viral screen negative for influenza A/B, RSV or COVID. She is seen today in consultation on the regular medical floor. She is currently sitting up in bed. Awake and alert in no acute distress. Maintaining O2 saturations in the 90s on room air oxygen. She had a Tmax on arrival of 102.0. She is currently afebrile. No tachycardia. No tachypnea. Blood pressure stable. The patient is seen today February 09, 2025 in follow-up on the regular medical floor. She is currently sitting up in bed. Awake and alert in no acute distress. Breathing easier today compared to yesterday. Continues to maintain good O2 saturations in the mid 90s on room air oxygen. She does have some rib pain from coughing. She is afebrile. Hemodynamically stable. Blood culture pending. Sputum culture pending. Creatinine 0.50. GFR greater than 90. She remains on cefepime, vancomycin and azithromycin. Infectious disease is on the case. She remains on Robitussin as needed. NicoDerm patch in place. The patient is seen today February 10, 2025 in follow-up on the regular medical floor. She is currently resting in bed. Awake and alert in no acute distress. Maintaining O2 saturations in the 90s on room air. She is been afebrile. Hemodynamically stable. Breathing easier today compared to yesterday. Chest x- ray continues to show an extensive left lower lobe pneumonia. Sputum culture showing presumptive Staph aureus. Nasal screen is positive for MRSA. White count 7.9. Hemoglobin 10.6. Platelets 304. Sodium 134. Potassium 3.8. Bicarb 23. BUN 2. Creatinine 0.53. Glucose 80. Procalcitonin is less than 0.20. She is currently on cefepime per ID service. She remains on bronchodilators. NicoDerm patch in place. Normal saline at 20 mL/h The patient is seen today February 11, 2025 in follow-up on the regular medical floor. She is awake and alert in no acute distress. Sitting up in bed. Maintaining good O2 saturations in the 90s on room air. She is afebrile. Hemodynamically stable. White count 6.8. Hemoglobin 10.8. Platelets 299. Sodium 131. Potassium 4.8. Bicarb 21. BUN 4. Creatinine 0.50. Glucose 89. She remains on vancomycin. NicoDerm patch in place. Continued on her methadone. Albuterol as needed. Remains on Robitussin as needed. The patient is seen today February 12, 2025 in follow-up on the regular medical floor. She is resting in bed. Awake and alert in no acute distress. Continues to maintain good O2 saturation in the mid 90s on room air oxygen. She has been afebrile. Hemodynamically stable. Sodium 137. Potassium 5.0. Bicarb 24. BUN 2. Creatinine 0.54. Glucose 89. She remains on vancomycin. NicoDerm patch in place. Albuterol as needed. Robitussin as needed. Continued on her methadone. She received a midline yesterday. Objective - Vital Signs Vital signs: Vital Signs Temp 98.8 F 02/12/25 07:19 Pulse 75 02/12/25 07:19 Resp 18 02/12/25 07:56 BP 119/77 02/12/25 07:19 Pulse Ox 93 L 02/12/25 07:19 FiO2 Intake & Output 02/11/25 02/12/25 02/12/25 18:59 06:59 18:59 Intake Total 240 Balance 240 Intake: Oral 240 Other: # Voids 3 2 2 - Exam GENERAL EXAM: Alert, 39-year-old female, resting in bed, on room air oxygen, comfortable in no apparent distress. HEAD: Normocephalic. EYES: Normal reaction of pupils, equal size. NOSE: Clear with pink turbinates. THROAT: No erythema or exudates. NECK: No masses, no JVD. CHEST: No chest wall deformity. LUNGS: Equal air entry with few scattered rhonchi mainly over the left lung. CVS: S1 and S2 normal with no audible murmur, regular rhythm. ABDOMEN: No hepatosplenomegaly, normal bowel sounds, no guarding or rigidity. SPINE: No scoliosis or deformity SKIN: No rashes CENTRAL NERVOUS SYSTEM: No focal deficits, tone is normal in all 4 extremities. EXTREMITIES: There is no peripheral edema. No clubbing, no cyanosis. Peripheral pulses are intact. - Labs CBC & Chem 7: 02/11/25 03:32 02/12/25 06:44 Labs: Abnormal Lab Results - Last 24 Hours (Table) 02/12/25 Range/Units 06:44 Chloride 109 H (98-107) mmol/L BUN <2 L (7-17) mg/dL Calcium 8.3 L (8.4-10.2) mg/dL Assessment and Plan Assessment: Acute community-acquired necrotizing left lower lobe pneumonia with multiple cystic airspaces developing. Sputum culture showing MRSA and Alyssa. Currently on vancomycin Febrile illness secondary to above, resolved Leukocytosis secondary to above, resolved Chronic and ongoing tobacco dependence including vaping History of IV drug abuse, currently on methadone History of MTHFR gene mutation History of previous PE/DVT, not on anticoagulants for years due to cost History of bipolar disorder Anxiety/depression Obesity with a BMI of 35.4 kg/m Plan: The patient was seen and evaluated Labs and medications reviewed Currently stable on room air oxygen Midline placed Continued on vancomycin Continue albuterol as needed Continue Robitussin as needed Educated regarding smoking cessation NicoDerm patch in place Cleared for discharge Antibiotics determined by ID service I have personally seen and examined the patient, performed the documentation and the assessment and plan as written. Number of minutes spent on the visit: 10 Dictation was produced using [employer] dictation software. Please excuse any grammatical, word or spelling errors.
[2025-02-13] MEDS: LIDOCAINE 4% PATCH TOPICAL SCH (01:42)
--- NOTE | 2025-02-13 06:32 | P.PN ---
Subjective Progress Note Date: 02/12/25 patient 39-year-old lady with past medical history significant for DVT who presents the ER because of shortness of breath and fever. Patient apparently was seen at [facility] about 2 weeks ago with similar complaints and was discharged on Levaquin. Patient is very anxious apparently has lost her mom recently. Patient stated that she has been feeling feverish at home. Patient has been complaining of cough, complaining of shortness of breath at rest as well exertion. Patient also complaining of nausea and vomiting. Patient is not able to keep anything down. Complaining of pain in her lower extremities as well. Because of the symptoms, patient came to the ER Initial lab work done in the ER showed WBC 19.7, hemoten 0.6, platelet count 279, sodium 110, potassium 2.8, BUN 12 4, creatinine 0.64, magnesium 1.5, AST 39, ALT 20 UA done was negative for infection Influenza A not detected Influenza B not detected RSV not detected COVID-19 not detected EKG done in the ER showed heart rate of 93, no ST segment elevation or depression seen, no T-wave inversions seen. CT chest PE protocol done showed necrotizing left lower lobe pneumonia with multiple cystic airspaces Duplex ultrasound of lower extremity showed no evidence of DVT Patient admitted to internal medicine service 02/09. Patient examined. States she feels better. Still complaining of shortness of breath and productive cough 02/10/2025 Patient is seen and evaluated in follow-up with infectious disease following along with pulmonary. Patient reports is feeling better although continues with significant pain in the ribs and has not been receiving her methadone. Patient is maintained on Dilaudid and will reconfirm with biomed patient's dosing to resume methadone. Culture showing staph with infectious disease following and will discuss regarding discharge planning and medications for discharge. Patient continues to report significant shortness of breath with minimal exertion. Encouraged to increase activity as tolerated 02/11/2025 Patient is seen in follow-up today has received a PICC line and awaiting insurance authorization for discharge with continued IV antibiotic therapy per ID recommendations. Pulmonary has cleared the patient's once antibiotics are arranged. Patient would like to go but is agreeable to waiting for the verification of coverage. Patient is afebrile remains on room air and shortness of breath is improving. Encouraged continued increase activity as tolerated. 02/12/2025 Patient seen and evaluated in follow-up today and has a PICC line continuing to await authorization for antibiotics on discharge in the outpatient setting. Apparently per nursing staff the alcohol bottles found in the bathroom patient reported they were her 's when he was up here visiting last night. Patient reports history of IV drug abuse although has been over 2 years and is maintained on methadone and goes to the clinic every day. Patient does have a pain contract with them. Patient would like to go home today and currently awaiting approval for antibiotics on discharge. REVIEW OF SYSTEMS: CONSTITUTIONAL: No fever, no malaise,. CARDIOVASCULAR: No chest pain, no palpitations, no syncope. PULMONARY: as mentioned above GASTROINTESTINAL: No diarrhea, no nausea, no vomiting, no abdominal pain. NEUROLOGICAL: No headaches, no weakness, PHYSICAL EXAMINATION: GENERAL: The patient is alert and oriented x3, not in any acute distress. Mildly anxious on exam today. Well developed, well nourished. Obese HEENT: Pupils are round and equally reacting to light. EOMI. No scleral icterus. No conjunctival pallor. Normocephalic, atraumatic. No pharyngeal erythema. No thyromegaly. CARDIOVASCULAR: S1 and S2 present. No murmurs, rubs, or gallops. PULMONARY: Coarse breath sound bilaterally, no wheeze audible. ABDOMEN: Soft, nontender, nondistended, normoactive bowel sounds. No palpable organomegaly. MUSCULOSKELETAL: No joint swelling or deformity. EXTREMITIES: No cyanosis, clubbing, or pedal edema. NEUROLOGICAL: Gross neurological examination did not reveal any focal deficits. SKIN: No rashes. Assessment: Bacterial pneumonia with culture showing MRSA Sepsis, present on admission secondary to above Leukocytosis trending down Hyponatremia, improving after IV hydration Hypokalemia, replaced and improved Hypomagnesemia, improved after replacement Currently maintained on methadone and follows at [facility] daily for dosing History of IV drug abuse Obesity with a BMI of 35.4 GI prophylaxis DVT prophylaxis Full code Plan: Patient being followed by pulmonary along with infectious disease maintained on IV antibiotics and cultures growing MRSA. Patient has received a PICC line and there was concern initially with safe discharge planning as patient has history of IV drug abuse. Patient reports has not used any illegal drugs in over 2 years. Patient reports she goes to the methadone clinic in [place] daily seen. Patient reports improvements in shortness of breath and again encouraged incentive spirometer use multiple times throughout the day., patient currently on room air. Pulmonary following and has cleared the patient for discharge once antibiotics are arranged Encouraged to increase activity as tolerated Continue with breathing treatments Contacted biomed in [place] phone number [phone] to determine appropriate dosing as patient takes methadone daily and goes to the clinic daily for administration Awaiting insurance verification for IV antibiotics on discharge and patient has received a PICC line. Possible discharge planning in 24 hours The impression and plan of care has been dictated by Griselda Kasper, Nurse Practitioner as directed. Dr. Stephanie MD I have performed a history and examination and MDM of this patient, discussed the same with the dictator, and agree with the dictator's assessment and plan as written ,documented as a scribe. Based on total visit time, I have performed more than 50% of the visit. 02/12/2025 Patient seen in follow-up today Objective - Vital Signs Vital signs: Vital Signs Temp 97.8 F 02/13/25 01:40 Pulse 67 02/13/25 01:40 Resp 18 02/13/25 01:40 BP 104/63 02/13/25 01:40 Pulse Ox 97 02/13/25 01:40 FiO2 Intake & Output 02/12/25 02/12/25 02/13/25 06:59 18:59 06:59 Intake Total 240 Balance 240 Intake: Oral 240 Other: Voiding Method Toilet # Voids 2 3 - Labs CBC & Chem 7: 02/11/25 03:32 02/12/25 06:44 Labs: Abnormal Lab Results - Last 24 Hours (Table) 02/12/25 Range/Units 06:44 Chloride 109 H (98-107) mmol/L BUN <2 L (7-17) mg/dL Calcium 8.3 L (8.4-10.2) mg/dL Microbiology - Last 24 Hours (Table) 02/07/25 22:11 Blood Culture - Final Blood
[2025-02-13 07:45] VITALS: BP 112/67; PULSE 75; RESP 16; TEMP 97.9
[2025-02-13 10:00] LABS: African American GFR (CKD) >90 (>60 ml/min/1.73 sqM); Non-African American GFR(CKD) >90 (>60 ml/min/1.73 sqM)
[2025-02-13] MEDS: VANCOMYCIN TROUGH DUE 1 EACH MISC MISCELLANE ONE (12:21)
[2025-02-13] MEDS: VANCOMYCIN 1,500 MG in SODIUM CHLORIDE 0.9% 500 ML 500 ML IVPB SCH (13:25)
--- NOTE | 2025-02-13 13:50 | P.PN ---
Subjective Progress Note Date: 02/13/25 Principal diagnosis: Pneumonia. This is a 39-year-old female with a history of previous IV drug abuse currently on methadone, chronic tobacco dependence, vapes, MTHFR clotting disorder with previous PE/DVT who had not been on blood thinners for quite some time due to cost and an ability to regulate warfarin, obesity. Approximately 10 days ago she was seen at [facility] in the emergency department and was told she may have pneumonia and was given Levaquin which she took for 7 days. She had no significant improvement and presented here to the emergency room last evening with worsening shortness of breath, coughing up blood and high fevers. She was considerably weak and barely able to get out of bed. CT angiogram ruled out pulmonary embolism. There is necrotizing left lower lobe pneumonia with multiple cystic airspace developing. Venous Doppler of the left lower extremity ruled out DVT. White count 14.4. Hemoglobin 9.4. Platelets 244. Sodium 135. Potassium 3.0. Bicarb 27. BUN 4. Creatinine 0.50. Glucose 101. Urinalysis clean. Viral screen negative for influenza A/B, RSV or COVID. She is seen today in consultation on the regular medical floor. She is currently sitting up in bed. Awake and alert in no acute distress. Maintaining O2 saturations in the 90s on room air oxygen. She had a Tmax on arrival of 102.0. She is currently afebrile. No tachycardia. No tachypnea. Blood pressure stable. The patient is seen today February 09, 2025 in follow-up on the regular medical floor. She is currently sitting up in bed. Awake and alert in no acute distress. Breathing easier today compared to yesterday. Continues to maintain good O2 saturations in the mid 90s on room air oxygen. She does have some rib pain from coughing. She is afebrile. Hemodynamically stable. Blood culture pending. Sputum culture pending. Creatinine 0.50. GFR greater than 90. She remains on cefepime, vancomycin and azithromycin. Infectious disease is on the case. She remains on Robitussin as needed. NicoDerm patch in place. The patient is seen today February 10, 2025 in follow-up on the regular medical floor. She is currently resting in bed. Awake and alert in no acute distress. Maintaining O2 saturations in the 90s on room air. She is been afebrile. Hemodynamically stable. Breathing easier today compared to yesterday. Chest x- ray continues to show an extensive left lower lobe pneumonia. Sputum culture showing presumptive Staph aureus. Nasal screen is positive for MRSA. White count 7.9. Hemoglobin 10.6. Platelets 304. Sodium 134. Potassium 3.8. Bicarb 23. BUN 2. Creatinine 0.53. Glucose 80. Procalcitonin is less than 0.20. She is currently on cefepime per ID service. She remains on bronchodilators. NicoDerm patch in place. Normal saline at 20 mL/h The patient is seen today February 11, 2025 in follow-up on the regular medical floor. She is awake and alert in no acute distress. Sitting up in bed. Maintaining g ood O2 saturations in the 90s on room air. She is afebrile. Hemodynamically stable. White count 6.8. Hemoglobin 10.8. Platelets 299. Sodium 131. Potassium 4.8. Bicarb 21. BUN 4. Creatinine 0.50. Glucose 89. She remains on vancomycin. NicoDerm patch in place. Continued on her methadone. Albuterol as needed. Remains on Robitussin as needed. The patient is seen today February 12, 2025 in follow-up on the regular medical floor. She is resting in bed. Awake and alert in no acute distress. Continues to maintain good O2 saturation in the mid 90s on room air oxygen. She has been afebrile. Hemodynamically stable. Sodium 137. Potassium 5.0. Bicarb 24. BUN 2. Creatinine 0.54. Glucose 89. She remains on vancomycin. NicoDerm patch in place. Albuterol as needed. Robitussin as needed. Continued on her methadone. She received a midline yesterday. Progress note dated February 13, 2025. The patient is seen today in room 483. She is on room air. She is getting saline at 20 cc an hour. A PICC line was placed. She will be discharged on vancomycin. Clinically, she is doing well. She denies any significant shortness of breath, cough, wheezing, chest tightness, or phlegm production. She is sitting at the edge of the bed. Labs today include a creatinine of 0.61. Trough vancomycin level was 24.3. Objective - Vital Signs Vital signs: Vital Signs Temp 97.9 F 02/13/25 07:44 Pulse 75 02/13/25 07:44 Resp 16 02/13/25 07:44 BP 112/67 02/13/25 07:44 Pulse Ox 94 L 02/13/25 07:44 FiO2 Intake & Output 02/12/25 02/13/25 02/13/25 18:59 06:59 18:59 Intake Total 1500 Balance 1500 Intake: Oral 1500 Other: Voiding Method Toilet Toilet # Voids 3 2 - Exam No acute distress, oriented 3. HEENT examination is grossly unremarkable. Mucous membranes are moist. No oral lesions. Neck supple. Full range of motion. No adenopathy thyromegaly or neck vein distention. Cardiovascular examination reveals regular rhythm rate. S1-S2 normal. No S3 or S4. No discernible murmur noted. Lungs reveal mild scattered rhonchi. No wheezes or crackles. Breath sounds are equal. Abdomen soft bowel sounds are heard. No masses or tenderness. Extremities are intact. No cyanosis clubbing or edema. Skin is without rash or lesion. Neurologic examination is brief but nonfocal. - Labs CBC & Chem 7: 02/11/25 03:32 02/13/25 09:35 Labs: Microbiology - Last 24 Hours (Table) 02/07/25 22:11 Blood Culture - Final Blood Assessment and Plan Assessment: Acute community-acquired necrotizing left lower lobe pneumonia secondary to MRSA. Febrile illness secondary to above, resolved. Leukocytosis secondary to above, resolved. Chronic and ongoing tobacco dependence including vaping. History of IV drug abuse, currently on methadone. History of MTHFR gene mutation. History of previous PE/DVT. History of bipolar disorder. Anxiety/depression. Obesity with a BMI of 35.4 kg/m. Plan: Plan dated February 13, 2025. The patient is seen today in room 43. She is on room air. She is getting saline at 20 cc an hour. The plan is for possible discharge. A PICC line was placed. She will receive vancomycin as an outpatient for her MRSA pneumonia. Labs, x-rays, and all medications are reviewed. We will continue to follow should she not be discharged. Prognosis is guarded. Dictation was produced using [employer] software. Please excuse any grammatical, word or spelling errors. Time with Patient: Less than 30
--- NOTE | 2025-02-13 14:03 | P.PN ---
Subjective Progress Note Date: 02/12/25 Principal diagnosis: Reason for follow-up is necrotizing pneumonia Patient is a 39-year-old female with a past medical history significant for DVT PE anxiety bipolar depression currently everyday smoker presenting to the hospital for evaluation of increasing shortness of breath and cough patient has been diagnosed with necrotizing pneumonia left lower lobe. On today's evaluation that is 02/12/2025, the patient continues to be afebrile, the patient is on room air and breathing comfortably, the Pt denies having any chest pain still pending of cough and bring up some sputum, the patient denies having any abdominal pain no vomiting or any diarrhea has been reported by the nursing staff. Patient did have a creatinine 0.54 electrolytes has been normal Objective - Vital Signs Vital signs: Vital Signs Temp 98.8 F 02/12/25 07:19 Pulse 75 02/12/25 07:19 Resp 18 02/12/25 07:56 BP 119/77 02/12/25 07:19 Pulse Ox 93 L 02/12/25 07:19 FiO2 Intake & Output 02/11/25 02/12/25 02/12/25 18:59 06:59 18:59 Intake Total 240 Balance 240 Intake: Oral 240 Other: # Voids 3 2 2 - Exam GENERAL DESCRIPTION: Middle-age female lying in bed in no distress RESPIRATORY SYSTEM: Unlabored breathing , decreased breath sounds at bases HEART: S1 S2 regular rate and rhythm , ABDOMEN: Soft , no tenderness EXTREMITIES: No edema feet - Labs CBC & Chem 7: 02/11/25 03:32 02/13/25 09:35 Labs: Abnormal Lab Results - Last 24 Hours (Table) 02/12/25 Range/Units 06:44 Chloride 109 H (98-107) mmol/L BUN <2 L (7-17) mg/dL Calcium 8.3 L (8.4-10.2) mg/dL Assessment and Plan (1) Sepsis Current Visit: Yes Status: Acute Code(s): A41.9 - SEPSIS, UNSPECIFIED ORGANISM SNOMED Code(s): 99161416 (2) Pneumonia Current Visit: Yes Status: Acute Code(s): J18.9 - PNEUMONIA, UNSPECIFIED ORGANISM SNOMED Code(s): 773429984 Plan: 1patient presented to hospital with sepsis in this patient who did have fever tachycardia elevated white count meeting criteria for SIRS/sepsis source is pneumonia in this patient recently treated with oral Levaquin failing outpatient will require therapy concerning for possible necrotizing pneumonia related to resistant gram-positive/gram-negative pathogen. 2sputum is currently growing MRSA, nasal MRSA swab is positive 3patient did have a history of drug use by snorting cocaine patient categorically denied ever use any IV drugs it has been explained to the patient in the presence of the patient nurse that that thing can be injected into the PICC line as that can lead to possible immediate patient replied has no plan on using any drugs 4patient will need a 10-day course of IV vancomycin pharmacy to dose target of 15 because of her necrotizing cavitary pneumonia second MRSA currently waiting for the outpatient IV antibiotic arrangement before discharge Dictation was produced using [employer] dictation software. please excuse any grammatical, word or spelling errors. Time with Patient: Less than 30
--- NOTE | 2025-02-13 14:04 | P.PN ---
Subjective Progress Note Date: 02/13/25 Principal diagnosis: Reason for follow-up is necrotizing pneumonia Patient is a 39-year-old female with a past medical history significant for DVT PE anxiety bipolar depression currently everyday smoker presenting to the hospital for evaluation of increasing shortness of breath and cough patient has been diagnosed with necrotizing pneumonia left lower lobe. On today's evaluation that is 02/13/2025, Patient is afebrile patient is currently on room air and denies having any shortness of breath, the patient denies any chest pain and cough decrease in intensity no nausea no vomiting abdominal pain or diarrhea patient been insisting on going home. The patient had creatinine 0.61 Vanco trough is 24.3 Objective - Vital Signs Vital signs: Vital Signs Temp 97.9 F 02/13/25 07:44 Pulse 75 02/13/25 07:44 Resp 16 02/13/25 07:44 BP 112/67 02/13/25 07:44 Pulse Ox 94 L 02/13/25 07:44 FiO2 Intake & Output 02/12/25 02/13/25 02/13/25 18:59 06:59 18:59 Intake Total 1500 Balance 1500 Intake: Oral 1500 Other: Voiding Method Toilet Toilet # Voids 3 2 - Exam GENERAL DESCRIPTION: Middle-age female lying in bed in no distress RESPIRATORY SYSTEM: Unlabored breathing , decreased breath sounds at bases HEART: S1 S2 regular rate and rhythm , ABDOMEN: Soft , no tenderness EXTREMITIES: No edema feet - Labs CBC & Chem 7: 02/11/25 03:32 02/13/25 09:35 Labs: Microbiology - Last 24 Hours (Table) 02/07/25 22:11 Blood Culture - Final Blood Assessment and Plan (1) Sepsis Current Visit: Yes Status: Acute Code(s): A41.9 - SEPSIS, UNSPECIFIED ORGANISM SNOMED Code(s): 91992650 (2) Pneumonia Current Visit: Yes Status: Acute Code(s): J18.9 - PNEUMONIA, UNSPECIFIED ORGANISM SNOMED Code(s): 827889812 Plan: 1patient presented to hospital with sepsis in this patient who did have fever tachycardia elevated white count meeting criteria for SIRS/sepsis source is pneumonia in this patient recently treated with oral Levaquin failing outpatient will require therapy concerning for possible necrotizing pneumonia related to resistant gram-positive/gram-negative pathogen. 2sputum is currently growing MRSA, nasal MRSA swab is positive 3patient did have a history of drug use by snorting cocaine patient categorically denied ever use any IV drugs it has been explained to the patient in the presence of the patient nurse on 02/12/2025 that that thing can be injected into the PICC line as that can lead to possible immediate patient replied has no plan on using any drugs 4patient currently due to the vancomycin pharmacy to dose does need to be adjusted now to keep the trough around 15 currently waiting for outpatient IV antibiotic arrangement discussed with the [employer] for admitting team Dictation was produced using [employer] dictation software. please excuse any grammatical, word or spelling errors. Time with Patient: Less than 30
[2025-02-13 14:07] VITALS: BMI 35.4
== END 2025-02-13 17:12 | disposition home health service (06) | DRG 720 ==
LOC: EC 19:48 → 4SSUR 22:30
PROVIDERS: ADMIT Hospitalist; ATTEND Hospitalist
PROC: 02HV33Z Insertion of Infusion Device into Superior Vena Cava, Percutaneous Approach (ICD-10-PCS; principal; 2025-02-11 08:30)
DX: A41.02 Sepsis due to Methicillin resistant Staphylococcus aureus (principal); J15.212 Pneumonia due to Methicillin resistant Staphylococcus aureus; F17.290 Nicotine dependence, other tobacco product, uncomplicated; D68.9 Coagulation defect, unspecified; E66.9 Obesity, unspecified; E83.42 Hypomagnesemia; E87.1 Hypo-osmolality and hyponatremia; E87.6 Hypokalemia; F31.9 Bipolar disorder, unspecified; F11.20 Opioid dependence, uncomplicated; J85.0 Gangrene and necrosis of lung; R53.81 Other malaise; F41.9 Anxiety disorder, unspecified; R11.2 Nausea with vomiting, unspecified; J06.9 Acute upper respiratory infection, unspecified; Z68.35 Body mass index [BMI] 35.0-35.9, adult; Z79.01 Long term (current) use of anticoagulants; Z86.711 Personal history of pulmonary embolism; Z86.718 Personal history of other venous thrombosis and embolism; Z91.148 Patient's other noncompliance with medication regimen for other reason; Z63.4 Disappearance and death of family member; Z20.822 Contact with and (suspected) exposure to COVID-19
CPT/HCPCS: 36415; 36573; 71046; 71275; 80048; 80053; 80202; 81003; 82565; 83735; 83880; 84100; 84145; 84484; 85025; 85610; 85730; 87040; 87070; 87077; 87186; 87205; 87636; 93005; 94640; 96361; 96365; 96367; 96368; 96375; 99291

== ENCOUNTER → 2025-02-19 | Outpatient (CLI) | payer OTHER ==
[2025-02-19 15:00] LABS: Basophils # (A) 0.07 10*3/uL (0.00-0.10); Basophils % (A) 1.1 %; Eosinophils # (A) 0.15 10*3/uL (0.04-0.35); Eosinophils % (A) 2.3 %; HCT 38.7 % (37.2-46.3); HGB 12.6 g/dL (12.0-15.0); Lymphocytes % (A) 29.1 %; MCH 27.9 pg (27.0-32.0); MCHC 32.6 g/dL (32.0-37.0); MCV 85.6 fL (80.0-97.0); Mean Platelet Volume 11.1 fL (9.5-12.2); Monocytes # (A) 0.66 10*3/uL (0.20-1.00); Monocytes % (A) 10.1 %; Neutrophils # (A) 3.74 10*3/uL (1.80-7.70); Neutrophils % (A) 57.1 %; RBC 4.52 10*6/uL (4.10-5.20); RDW 13.5 % (11.5-14.5); WBC 6.54 10*3/uL (4.50-10.00)
[2025-02-19 15:14] LABS: African American GFR (CKD) >90 (>60 ml/min/1.73 sqM); Anion Gap 10 mmol/L; Blood Urea Nitrogen 6 mg/dL (7-17); C Reactive Protein 2.4 mg/dL (<1.0); Calcium 9.2 mg/dL (8.4-10.2); Carbon Dioxide 26 mmol/L (22-30); Chloride 103 mmol/L (98-107); Glucose 99 mg/dL (74-99); Non-African American GFR(CKD) >90 (>60 ml/min/1.73 sqM); Potassium 4.4 mmol/L (3.5-5.1); Sodium 139 mmol/L (137-145)
== END | disposition home or self-care (01) ==
LOC: LABWHC1 14:20
PROVIDERS: ATTEND Internal Medicine Infectious Disease
DX: J15.212 Pneumonia due to Methicillin resistant Staphylococcus aureus (principal)
CPT/HCPCS: 36415; 80048; 85025; 86140